=== PATIENT | male | born 1950 | race Caucasian/White ===

== ENCOUNTER 2023-09-24 06:11 | Inpatient (IN) | payer MEDICARE, OTHER, SELFPAY ==
[2023-09-13 09:12] VITALS: BMI 32.6
[2023-09-13 09:59] LABS: Hematocrit 41.4 % (39.0-52.0); Hemoglobin 14.5 g/dL (13.0-18.0); Mean Corpuscular Volume 88.5 fL (80.0-94.0); Mean Platelet Volume 9.7 fL (7.4-10.4); Platelet Count 218 10^3/uL (130-400); Red Blood Cell Count 4.68 10^6/uL (4.70-6.10); Red Cell Dist. Width 12.4 % (11.5-14.5); White Blood Cell Count 4.6 10^3/uL (4.8-10.8)
[2023-09-13 10:19] LABS: Blood Urea Nitrogen 21 mg/dl (9-20); Calcium 9.7 mg/dl (8.4-10.2); Carbon Dioxide 21 mmol/L (22-30); Chloride 106 mmol/L (98-107); Estimated Creatinine Clearance 78 ml/min; Glucose 108 mg/dl (70-99); Potassium 4.8 mmol/L (3.5-5.1); Sodium 139 mmol/L (135-145); eGFR > 60.00
--- NOTE | 2023-09-24 09:15 | HP.FOC2 ---
Focused History & Physical
Chief Complaint
HPI:
Chief Complaint: Recurrent sigmoid diverticulitis
HPI / Indication for Planned Procedure: Patient is a 73-year-old male with a known history of sigmoid diverticulitis. He has had 3 recurrences over the last year with CT imaging confirming recurrent sigmoid diverticulitis. Presents today for
sigmoidectomy for management.
Relevant Past Medical History: Other (Obesity, dyslipidemia, hypertension, GERD, euthyroid goiter, previous history of prostate cancer, recurrent diverticulitis)
Relevant Social History: Negative
Relevant Family History: Negative
Relevant Past Surgical History: Positive for (TNA, sebaceous cyst excision, cataracts, prostatectomy)
Review of Systems
Review of Pertinent Systems: All Systems Negative
Medication
See Medication form for detailed medications: Yes
Medication List (including Herbals & OTC):
simvastatin 40 mg tablet 40 mg PO HS High cholesterol 03/18/20
lisinopril 10 mg tablet 10 mg PO HS Blood pressure 10/09/22
calcium carbonate (Tums) 200 mg PO PRN PRN reflux 09/20/23
famotidine 10 mg tablet 10 mg PO PRN PRN reflux 09/20/23
sodium sul 1.479 gram-potas ch 0.188 gram-magnes sul 0.225 gram tablet (Sutab) 1 tab PO DIRECTED 09/20/23
Medications Reviewed: Yes
Allergies and Reactions
Patient has Allergies: Yes
Noted Allergies and Reactions:
Allergy/AdvReac Type Severity Reaction Status Date / Time
Sulfa (Sulfonamide Allergy forehead Verified 09/20/23 12:08
Antibiotics) got red &
itchy
Pertinent Physical Exam
All Other Systems: Negative
Head/Neck: Normal
Lungs: Normal
Heart: Normal
Abdomen: Normal
Extremities: Normal
Neurological: Normal
Diagnosis / Assessment
73-year-old male with recurrent sigmoid diverticulitis presenting for scheduled sigmoidectomy
Plan / Procedure
Laparoscopic assisted sigmoidectomy
Anesthesia/Sedation to be done by Anesthesia Provider: Yes
[2023-09-24 10:42] VITALS: BP 113/74
[2023-09-24 10:55] VITALS: BMI 32.6
[2023-09-24] MEDS: ENTEREG 12 MG PO (10:59)
[2023-09-24] MEDS: TYLENOL 1000 MG PO (10:59)
[2023-09-24] MEDS: NORMOSOL-R 1000 IV (11:12)
--- NOTE | 2023-09-24 11:37 | W.SUR.PREOP ---
Pre-Operative Surgical Note
-
I have examined this patient prior to the performance of the scheduled procedure.
The patient's condition is unchanged from the time of the current History and
Physical and the patient is able to undergo the scheduled procedure.
--- NOTE | 2023-09-24 15:33 | W.IMMPOSTOP ---
Addendum entered and electronically signed by Simon Rodney MD 09/24/23 16:06:
#[id number]
Original Note:
Surgical Immed Post Op Note
-
Primary Surgeon: Ronel
Assisting Surgeon: Jaswinder Lowry PGY -1
Pablito LOTT
Pre-op Diagnosis: Sigmoid diverticulitis
Post-op Diagnosis: Sigmoid diverticulitis
Procedure Performed: Laparoscopic sigmoidectomy
Anesthesia Type: GETA +0.25% Marcaine
Specimen / Cultures: Sigmoid colon
Estimated Blood Loss: 30 mL
Complications: None immediate
Operative Findings: Very redundant and lengthy sigmoid colon. Chronic diverticular inflammation and adhesions particularly along the left side of the mesentery and pelvic sidewall. Sigmoidectomy completed with end-to-end EEA 28 anastomosis just
anterior to JAVAD staple line. Air leak test negative.
[2023-09-24 15:50] VITALS: BP 113/74
[2023-09-24 16:00] VITALS: BP 112/65
[2023-09-24 16:15] VITALS: BP 120/65
[2023-09-24 16:30] VITALS: BP 114/60
[2023-09-24] MEDS: NSS 1000 IV (16:30)
[2023-09-24 17:02] VITALS: BP 131/79
[2023-09-24] MEDS: OFIRMEV 100 IV (21:25)
[2023-09-25] MEDS: NSS 1000 IV ×3 (00:26→19:56)
[2023-09-25] MEDS: POLYTRIM OPHTHALMIC SOLUTION 1 DROP OPHTH ×3 (01:49→15:11)
[2023-09-25 03:15] VITALS: BP 136/80
[2023-09-25 07:35] VITALS: BP 142/76
[2023-09-25] MEDS: PROTONIX 40 MG PO (08:21)
--- NOTE | 2023-09-25 08:33 | W.PN.GS2 ---
Today's Communication / Plan
-
Clear liquids
Continue lisa
Assessment / Plan
-
73 yo male with history of sigmoid diverticulitis presenting for operative management
POD #1 lap sigmoidectomy
AFVSS
AM labs pending
Await bowel recovery
--Start clear liquid diet
--OOB/Ambulate
--Multimodal analgesics
--Continue lisa today, VT in AM
--Lovenox/SCD's for vte ppx
Subjective Data
-
Date of Service: September 25, 2023
Patient seen and examined at bedside with Dr. Lay. Denies n/v. Some eye irritation post op, better with drops. No passage of flatus/stool as of yet.
Objective Data
-
Intake and Output
09/24/23 09/25/23 09/26/23
06:59 06:59 06:59
Intake Total 1581 / 1581
Output Total 1100 / 1100
Balance 481 / 481
Intake:
Oral fluids 6 / 6
IV fluids (Total) 1575 / 1575
Nss 1,000 ml @ 120 mls/hr IV . 60 / 60
Q8H20M OTONIEL Rx#:[id number]
norm 75 / 75
Output:
Urine, Lisa 1100 / 1100
Vital Signs
Temp Pulse Resp BP Pulse Ox
98.3 F 82 14 142/76 96
09/25/23 07:35 09/25/23 07:35 09/25/23 07:35 09/25/23 07:35 09/25/23 07:35
Calcium 9.7 mg/dl (8.4-10.2) 09/13/23 09:10
Physical Exam
-
NAD
ABD soft, mild distention, mild generalized tenderness, TWISTER HAND
Incisions well approximated with intact glue
[2023-09-25 09:57] LABS: Hematocrit 37.6 % (39.0-52.0); Hemoglobin 13.1 g/dL (13.0-18.0); Mean Corp Hgb Conc. 34.8 g/dL (33.0-37.0); Mean Corpuscular Hgb 31.1 pg (27.0-31.0); Mean Corpuscular Volume 89.3 fL (80.0-94.0); Mean Platelet Volume 9.4 fL (7.4-10.4); Platelet Count 196 10^3/uL (130-400); Red Blood Cell Count 4.21 10^6/uL (4.70-6.10); Red Cell Dist. Width 12.3 % (11.5-14.5)
[2023-09-25 10:42] LABS: Blood Urea Nitrogen 17 mg/dl (9-20); Calcium 8.2 mg/dl (8.4-10.2); Carbon Dioxide 19 mmol/L (22-30); Chloride 109 mmol/L (98-107); Estimated Creatinine Clearance 111 ml/min; Glucose 143 mg/dl (70-99); Potassium 3.9 mmol/L (3.5-5.1); Sodium 134 mmol/L (135-145); eGFR > 60.00
[2023-09-25 11:25] VITALS: BP 126/66
--- NOTE | 2023-09-25 15:24 | CM ---
CM met with pt bedside
Pt resides with his spouse in a 2SH with 3STE
Full flight to second floor
Pt is independent with his ADLs
Denies use of DMEs and hx with VN/SNF
PCP- Paulino Jang
Rx- Nathan Montero
Discharge Disposition- home, no needs anticipated
[2023-09-25 15:25] VITALS: BP 135/78
[2023-09-25] MEDS: LOVENOX 40 MG SC (17:14)
[2023-09-25 19:00] VITALS: BP 136/73
[2023-09-25] MEDS: ZESTRIL 10 MG PO (21:33)
[2023-09-25 23:00] VITALS: BP 120/63
[2023-09-26] MEDS: NSS 1000 IV (05:29)
[2023-09-26 06:14] LABS: Hematocrit 34.3 % (39.0-52.0); Hemoglobin 11.8 g/dL (13.0-18.0); Mean Corp Hgb Conc. 34.4 g/dL (33.0-37.0); Mean Corpuscular Hgb 31.5 pg (27.0-31.0); Mean Corpuscular Volume 91.5 fL (80.0-94.0); Mean Platelet Volume 9.4 fL (7.4-10.4); Platelet Count 174 10^3/uL (130-400); Red Blood Cell Count 3.75 10^6/uL (4.70-6.10); White Blood Cell Count 6.8 10^3/uL (4.8-10.8)
[2023-09-26 06:35] LABS: Blood Urea Nitrogen 13 mg/dl (9-20); Calcium 8.4 mg/dl (8.4-10.2); Carbon Dioxide 26 mmol/L (22-30); Chloride 107 mmol/L (98-107); Estimated Creatinine Clearance 111 ml/min; Glucose 96 mg/dl (70-99); Potassium 4.5 mmol/L (3.5-5.1); Sodium 136 mmol/L (135-145); eGFR > 60.00
[2023-09-26 07:35] VITALS: BP 141/81
[2023-09-26] MEDS: PROTONIX 40 MG PO (07:57)
[2023-09-26] MEDS: POLYTRIM OPHTHALMIC SOLUTION 1 DROP OPHTH (07:57)
--- NOTE | 2023-09-26 08:29 | W.PN.GS2 ---
Today's Communication / Plan
-
Advance diet
Middleton removed
Assessment / Plan
-
73 yo male with history of sigmoid diverticulitis presenting for operative management
POD #2 lap sigmoidectomy
AFVSS
Labs stable. Mild acute anemia likely secondary to hemodilution and expected intraop losses
Passing flatus
Middleton out this am, DTV
--Advance to LRD
--OOB/Ambulate
--Multimodal analgesics
--Voiding trial today
--Lovenox/SCD's for vte ppx
Tentative d/c later today vs tomorrow pending diet tolerance and voiding trial
Subjective Data
-
Date of Service: September 26, 2023
Patient seen and examined at bedside with Dr. Lay. Denies pain. Some incisional soreness with coughing. Tolerating diet without n/v. Passing flatus. Has not yet voided.
Objective Data
-
Intake and Output
09/25/23 09/26/23 09/27/23
06:59 06:59 06:59
Intake Total 1581 / 1581 1320 / 1320
Output Total 1100 / 1100 2650 / 2650
Balance 481 / 481 -1330 / -1330
Intake:
Oral fluids 6 / 6 1320 / 1320
IV fluids (Total) 1575 / 1575
Nss 1,000 ml @ 120 mls/hr IV . 60 / 60
Q8H20M OTONIEL Rx#:[id number]
norm 75 / 75
Output:
Urine, Middleton 1100 / 1100 2650 / 2650
Vital Signs
Temp Pulse Resp BP Pulse Ox
98.0 F 60 16 141/81 98
09/26/23 07:35 09/26/23 07:35 09/26/23 07:35 09/26/23 07:35 09/26/23 07:35
Lab Results
09/26/23 05:56
09/26/23 05:56
Calcium 8.4 mg/dl (8.4-10.2) 09/26/23 05:56
Physical Exam
-
NAD
ABD soft, NT, ND, [employer]
Incisions well approximated with intact glue
--- NOTE | 2023-09-26 11:04 | CM ---
CM reveiwed chart- ADC today/tomorrow pending diet toleration and void trial
Bedside meeting with pt and spouse
No dc needs noted
IMM verbally reviewed- copy provided
Discharge Disposition- home, no needs- spouse transport
--- NOTE | 2023-09-26 13:38 | W.DCSUMMARY ---
Discharge Summary
Discharge Data
Date of Admission: 09/24/23
Date of Discharge: 09/26/23
-
Pending Results: No
Hospital Course
This is a 73 yo male with a history of sigmoid diverticulitis who presented for operative management with laparoscopic sigmoidectomy. He tolerated the procedure well without complication. Diet was able to be advanced and well tolerated after
surgery. He had good bowel recovery. Perioperative lisa was removed on post op day two an dhe was able to void without difficulty. Patient discharged to home with spouse with plan for outpatient follow up in the coming weeks.
Discharge Plan
-
Patient Disposition: Home (Routine Discharge)
Discharge Diagnosis/Procedures: Laparoscopic sigmoidectomy
Condition: Good
Diet: Low Fiber
Activity: No strenuous activity
Additional Activity: No lifting over 20 lbs for the next 2-3 weeks
Driving Restrictions: No driving for 1 week
Bathing Restrictions: OK to Shower
Wound Care: Allow the glue to flake off on its own
Activity Restrictions/Additional Instructions:
Call your surgeon if you have fevers >100.5, nausea with vomiting or worsening abdominal pain
Instructions: Low Fiber Diet
Referrals:
Simon Rodney MD [Active] - in two to four weeks
Paulino Jang MD [Family Provider] -
Prescriptions:
New
acetaminophen [acetaminophen] 325 mg tablet
650 mg PO Q4HPRN PRN (Reason: mild pain) Qty: 1 0RF
ibuprofen 200 mg tablet
400 - 600 mg PO Q6HPRN PRN (Reason: moderate pain) Qty: 1 0RF
Continued
simvastatin 40 MG tablet
40 mg PO HS
lisinopril 10 mg tablet
10 mg PO HS
famotidine 10 mg Tablet
10 mg PO PRN PRN (Reason: reflux)
calcium carbonate [Tums] 200 mg calcium (500 mg) Tablet,Chewable
200 mg PO PRN PRN (Reason: reflux)
Discontinued
Sutab 1.479-0.188- 0.225 gram Tablet
1 tab PO DIRECTED
Discharge Orders:
Discharge Patient (As Directed); Ordered 09/26/23
Ordered By: Georgina Villalobos
Discharge Date and Time
Print Language: ICELANDIC
[2023-09-26 14:22] VITALS: BP 153/80
== END 2023-09-26 14:26 | disposition home or self-care (01) | DRG 331 ==
LOC: 2 SOUTH 06:11
PROVIDERS: ADMITTING PHYSICIAN Surgery; FAMILY PHYSICIAN Internal Medicine
PROC: 0DBN4ZZ Excision of Sigmoid Colon, Percutaneous Endoscopic Approach (ICD-10-PCS; 2023-09-24)
DX: K57.32 Diverticulitis of large intestine without perforation or abscess without bleeding (principal); K64.9 Unspecified hemorrhoids
CPT/HCPCS: 88307; 36415; 80048; 85027; J1335

== ENCOUNTER → 2024-06-19 07:26 | Outpatient (REF) | payer MEDICARE, OTHER, SELFPAY ==
[2024-06-19 08:20] LABS: % Basophils 0.4 % (0-2); % Eosinophils 2.2 % (0-6); % Lymphocytes 22.4 % (20.5-51.1); % Monocytes 11.1 % (1.7-9.3); % Neutrophils 63.9 % (42.2-75.2); Absolute Eosinophils 0.1 10^3/uL (0-0.7); Absolute Monocytes 0.5 10^3/uL (0.1-0.6); Absolute Neutrophils 2.9 10^3/uL (1.4-6.5); Hematocrit 41.9 % (39.0-52.0); Hemoglobin 14.8 g/dL (13.0-18.0); Mean Corp Hgb Conc. 35.3 g/dL (33.0-37.0); Mean Corpuscular Volume 87.8 fL (80.0-94.0); Mean Platelet Volume 9.5 fL (7.4-10.4); Nucleated Red Blood Cells % 0 % (-); Platelet Count 221 10^3/uL (130-400); Red Blood Cell Count 4.77 10^6/uL (4.70-6.10); White Blood Cell Count 4.5 10^3/uL (4.8-10.8)
[2024-06-19 08:33] LABS: ALT (SGPT) 70 U/L (0-50); AST (SGOT) 44 U/L (17-59); Albumin 4.4 g/dl (3.5-5.0); Alkaline Phosphatase 93 U/L (38-126); Blood Urea Nitrogen 13 mg/dl (9-20); Calcium 9.2 mg/dl (8.4-10.2); Carbon Dioxide 27 mmol/L (22-30); Chloride 103 mmol/L (98-107); Glucose 106 mg/dl (70-99); Potassium 3.6 mmol/L (3.5-5.1); Sodium 139 mmol/L (135-145); Total Bilirubin 0.9 mg/dl (0.2-1.3); Total Protein 6.8 g/dl (6.3-8.2); eGFR > 60.00
[2024-06-19 08:59] LABS: TSH 3.87 uIU/ml (0.47-4.68)
== END ==
LOC: REG 07:26
PROVIDERS: ATTENDING PHYSICIAN Internal Medicine
DX: R19.7 Diarrhea, unspecified (principal)
CPT/HCPCS: 36415; 80053; 84443; 85025; 87045; 87046; 87328; 87329; 87427; 89055

== ENCOUNTER → 2024-07-21 11:45 | Outpatient (REF) | payer MEDICARE, OTHER, SELFPAY | LOC: MRI 3T 11:45 | PROVIDERS: ATTENDING PHYSICIAN Internal Medicine | DX: K86.2 Cyst of pancreas (principal) | CPT/HCPCS: 74183; A9575 ==

== ENCOUNTER 2024-09-27 05:26 | Emergency (ER) | payer MEDICARE, OTHER, SELFPAY ==
[2024-09-27 05:28] VITALS: BP 182/102
--- NOTE | 2024-09-27 05:33 | ED.GENMED ---
History of Present Illness
General
Chief Complaint: Skin Surface Trauma
Source: patient
Exam Limitations: none
Time Seen by Provider: 09/27/24 05:32
Nursing documentation reviewed up to this point in time: agreed with
History of Present Illness
History of Present Illness:
74-year-old male with past medical history of hypertension, GERD, diverticulitis, presents emergency department today with concerns of a skin tear to his right hand. Patient reports that yesterday at around 4 PM, he was doing yard work and was
working on repairing his tractor when he took the battery out, dropped it, and cut the web space between his 1st and 2nd finger, and the posterior surface of the hand. He applied a bandage and went to bed but when he woke up today, there was
persistent bleeding and blood on the bed sheets. He denies any other injuries. He denies pain or decreased range of motion of his fingers or his hands. Denies any paresthesias in his upper extremities. His tetanus is not up to date. He does not take
a blood thinner.
Past History
Past History
ED Past Medical History: Cancer, GERD, HTN and Hypercholesterolemia
ED Past Surgical History: Orthopedic, Tonsilectomy and Urological
Social History
Tobacco: Non-smoker
Alcohol: Occasional
Drug: None
Personal:
Living: with family
Employment: Employed
Review of Systems
Review of Systems
All Other Systems: ROS reviewed and negative except as documented in HPI and ROS
Phy Exam
Physical Exam
Physical Exam:
General: Patient is well appearing and in no acute distress; non-toxic
Skin: Warm and dry, 2.5 cm skin tear to the right posterior hand. Brisk capillary refill.
Head: Normocephalic, atraumatic
Eyes: Sclera non-icteric. EOMs intact.
Cardiac: Regular rate
Pulm: Normal respiratory effort
Musculoskeletal: No bony tenderness to palpation of the right hand.
Neuro: CN II-XII intact, no focal neurologic deficits.
Psychiatric: Appropriate mood and affect.
Course
Orders/Labs/Results
Orders:
Orders
09/27/24 05:45
Tetanus/Diphth/Acelpertussis [Adacel] 0.5 ml IM .ONCE ONE
Vital Signs
Initial and Last Documented VS:
Initial Vital Signs
Temp Pulse Resp BP Pulse Ox
97.8 F 70 18 182/102 98
09/27/24 05:28 09/27/24 05:28 09/27/24 05:28 09/27/24 05:28 09/27/24 05:28
Last Documented Vital Signs
Temp Pulse Resp BP Pulse Ox
97.8 F 63 18 136/77 97
09/27/24 05:28 09/27/24 06:05 09/27/24 06:05 09/27/24 06:05 09/27/24 06:05
Procedures
Laceration Closure
Right Hand:
Status of Wound: clean
Size of Wound in cm: 2.5
Description of Wound Edges: ragged
Preparation: cleaned with saline
Revision/Debridement: routine- no revision
Wound exploration: explored to base- no FB
Type of Closure: single layer closure and Dermabond-skin glue
MDM/Problems Addressed
Differential Diagnosis Includes:
ddx include abrasion, laceration,neurovascular injury
MDM/Problems Addressed:
74 y/o male presents to the ER today with a skin tear to the right hand. This injury occurred around 12 hours ago. He woke up and noticed that it was still bleeding. He denies any other injuries. On physical exam, he has a 2.5 cm skin tear. Pressure
was applied. Wound was dried and Dermabond and steri strips were applied for hemostasis. Patient was observed for a period of time with no evidence of rebleeding. His tetanus was updated today. Return precautions discussed. Patient stable for
discharge.
*Pulse Oximetry
Patient hypoxic: no
*Critical Care Note
Total Time (30-74mins, 75-104mins- exclusive of procedures): Not Applicable
Data Reviewed
Review of Other/Old Records Reveals: Records (reviewed discharge summary from 09/26/23, patient seen for diverticulitis s/p laparoscopic sigmoidectomy)
Source: patient and records
Update Note
Update Note:
6:00 am-- No evidence of rebleeding after period of observation.
ED Attending Note
-
Portions of this chart may have been created with voice recognition software.� Occasional wrong word or��sound alike� substitutions may have occurred due to the inherent limitations of voice recognition software.
Discharge Plan
Departure
Patient Disposition: Home (Routine Discharge)
Date of Disposition: 09/27/24
Time of Disposition: 06:14
Patient with high blood pressure during this ER visit?: Yes
Condition: Good
Discharge Problem:
Skin tear of right hand without complication
Instructions: Laceration Repair With Glue (DC), Wound Care (DC), BLOOD PRESSURE
Prescriptions:
No Action
simvastatin 40 MG tablet
40 mg PO HS
lisinopril 10 mg tablet
10 mg PO HS
famotidine 10 mg Tablet
10 mg PO PRN PRN (Reason: reflux)
calcium carbonate [Tums] 200 mg calcium (500 mg) Tablet,Chewable
200 mg PO PRN PRN (Reason: reflux)
acetaminophen [acetaminophen] 325 mg tablet
650 mg PO Q4HPRN PRN (Reason: mild pain) Qty: 1 0RF
ibuprofen 200 mg tablet
400 - 600 mg PO Q6HPRN PRN (Reason: moderate pain) Qty: 1 0RF
Activity Restrictions/Additional Instructions:
Your tetanus was updated today.
PLEASE RETURN THE EMERGENCY DEPARTMENT SHOULD YOU DEVELOP FEVERS OR CHILLS, PURULENT DRAINAGE FROM YOUR WOUND, SURROUNDING REDNESS TO THE WOUND, INCREASING PAIN, INABILITY MOVE YOUR HAND, CHEST PAIN, SHORTNESS OF BREATH, OR ANY OTHER SIGNS OR
SYMPTOMS RECENTLY.
Interventions
Interventions:
*Risk Screen - Suicide Last Done: 09/27/24 05:28
*General Assessment Last Done: 09/27/24 06:04
*Neglect/Abuse Screening Last Done: 09/27/24 05:28
*ED- Fall Risk Assessment Last Done: 09/27/24 06:04
*ED COVID-19 Vaccine History Last Done: 09/27/24 06:04
*Nursing Disposition Last Done: 09/27/24 06:30
ED-Skin Assessment Last Done: 09/27/24 06:04
Discharge Date and Time
Discharge Date/Time: 09/27/24 06:30
Print Language: MONTSERRATIAN
[2024-09-27] MEDS: ADACEL 0.5 ML IM (06:01)
[2024-09-27 06:05] VITALS: BP 136/77
== END 2024-09-27 06:30 | disposition home or self-care (01) ==
LOC: EMR 05:26
PROVIDERS: EMERGENCY PHYSICIAN Student in an Organized Health Care Education/Training Program
DX: S61.411A Laceration without foreign body of right hand, initial encounter (principal); W20.8XXA Other cause of strike by thrown, projected or falling object, initial encounter; E78.00 Pure hypercholesterolemia, unspecified; I10 Essential (primary) hypertension; Z23 Encounter for immunization
CPT/HCPCS: 12001; 90471; 99282; 90715

== ENCOUNTER 2024-11-07 06:36 | Day surgery (SDC) | payer MEDICARE, OTHER, SELFPAY ==
[2024-11-07 07:30] VITALS: BP 145/67
[2024-11-07 07:33] VITALS: BMI 27.9
[2024-11-07 07:34] VITALS: BMI 27.9
[2024-11-07 09:47] VITALS: BP 110/67
[2024-11-07 10:00] VITALS: BP 113/75
[2024-11-07 10:30] VITALS: BP 133/79
== END 2024-11-07 10:45 | disposition home or self-care (01) ==
LOC: GI 06:36
PROVIDERS: ATTENDING PHYSICIAN Internal Medicine Gastroenterology
DX: K86.9 Disease of pancreas, unspecified (principal); K86.89 Other specified diseases of pancreas; R93.3 Abnormal findings on diagnostic imaging of other parts of digestive tract; K22.70 Barrett's esophagus without dysplasia; K21.9 Gastro-esophageal reflux disease without esophagitis
CPT/HCPCS: 43237; 43239; 88305

== ENCOUNTER → 2024-12-28 07:47 | Outpatient (REF) | payer MEDICARE, OTHER, SELFPAY ==
[2024-12-28 08:13] LABS: Hematocrit 36.4 % (39.0-52.0); Hemoglobin 12.8 g/dL (13.0-18.0); Mean Corp Hgb Conc. 35.2 g/dL (33.0-37.0); Mean Corpuscular Volume 88.1 fL (80.0-94.0); Platelet Count 359 10^3/uL (130-400); Red Cell Dist. Width 11.3 % (11.5-14.5)
[2024-12-28 08:19] VITALS: BMI 27.2
[2024-12-28 08:25] LABS: INR 1.00; PT 13.7 Sec (11.4-14.6)
[2024-12-28 08:43] VITALS: BP 136/75; BP_SYST 68
[2024-12-28] MEDS: ANCEF 10 IV (09:54)
[2024-12-28 11:05] VITALS: BP 140/61; BP_SYST 84
[2024-12-28 11:20] VITALS: BP 133/79; BP_SYST 72
== END ==
LOC: RADI 07:47
PROVIDERS: ATTENDING PHYSICIAN Internal Medicine Hematology & Oncology; FAMILY PHYSICIAN Physician Assistant
DX: C25.0 Malignant neoplasm of head of pancreas (principal); D68.8 Other specified coagulation defects
CPT/HCPCS: 36415; 36561; 76705; 76937; 77001; 85027; 85610; 99152; 99153; C1788

== ENCOUNTER → 2025-01-01 08:25 | Outpatient (REF) | payer MEDICARE, OTHER, SELFPAY ==
[2025-01-01 09:27] LABS: Hematocrit 37.2 % (39.0-52.0); Hemoglobin 12.7 g/dL (13.0-18.0); Mean Corp Hgb Conc. 34.1 g/dL (33.0-37.0); Mean Corpuscular Volume 91.4 fL (80.0-94.0); Nucleated Red Blood Cells % 0 % (-); Platelet Count 290 10^3/uL (130-400); Red Cell Dist. Width 11.9 % (11.5-14.5)
[2025-01-01 09:53] LABS: ALT (SGPT) 25 U/L (0-50); AST (SGOT) 23 U/L (17-59); Albumin 4.1 g/dl (3.5-5.0); Alkaline Phosphatase 117 U/L (38-126); Blood Urea Nitrogen 27 mg/dl (9-20); Calcium 9.3 mg/dl (8.4-10.2); Carbon Dioxide 25 mmol/L (22-30); Chloride 109 mmol/L (98-107); Glucose 117 mg/dl (70-99); Potassium 4.9 mmol/L (3.5-5.1); Sodium 139 mmol/L (135-145); Total Protein 6.7 g/dl (6.3-8.2); eGFR > 60.00
== END ==
LOC: REG 08:25
PROVIDERS: ATTENDING PHYSICIAN Internal Medicine Hematology & Oncology; FAMILY PHYSICIAN Internal Medicine
DX: C25.0 Malignant neoplasm of head of pancreas (principal)
CPT/HCPCS: 36415; 80053; 85025

== ENCOUNTER → 2025-01-15 06:39 | Outpatient (REF) | payer MEDICARE, OTHER, SELFPAY ==
[2025-01-15 08:17] LABS: Hematocrit 36.8 % (39.0-52.0); Hemoglobin 12.6 g/dL (13.0-18.0); Mean Corp Hgb Conc. 34.2 g/dL (33.0-37.0); Mean Corpuscular Volume 90.2 fL (80.0-94.0); Platelet Count 146 10^3/uL (130-400); Red Cell Dist. Width 12.5 % (11.5-14.5)
[2025-01-15 08:47] LABS: ALT (SGPT) 30 U/L (0-50); AST (SGOT) 29 U/L (17-59); Albumin 3.9 g/dl (3.5-5.0); Alkaline Phosphatase 185 U/L (38-126); Blood Urea Nitrogen 16 mg/dl (9-20); Calcium 9.0 mg/dl (8.4-10.2); Carbon Dioxide 28 mmol/L (22-30); Chloride 106 mmol/L (98-107); Glucose 97 mg/dl (70-99); Potassium 4.2 mmol/L (3.5-5.1); Sodium 141 mmol/L (135-145); Total Protein 6.4 g/dl (6.3-8.2); eGFR > 60.00
[2025-01-15 09:16] LABS: Absolute Neutrophils -Man Diff 12.2 10^3/uL (1.4-6.5); Normal RBC Morphology Yes; Platelets Checked Yes; Total Cells Counted 100
== END ==
LOC: REG 06:39
PROVIDERS: ATTENDING PHYSICIAN Internal Medicine Hematology & Oncology; FAMILY PHYSICIAN Internal Medicine
DX: C25.0 Malignant neoplasm of head of pancreas (principal)
CPT/HCPCS: 36415; 80053; 85025

== ENCOUNTER → 2025-01-17 11:38 | Outpatient (REF) | payer MEDICARE, OTHER, SELFPAY ==
[2025-01-19 09:52] LABS: CA 19-9 25 U/mL (<=35)
== END ==
LOC: OIDL 11:38
PROVIDERS: ATTENDING PHYSICIAN Internal Medicine Hematology & Oncology
DX: C25.0 Malignant neoplasm of head of pancreas (principal)
CPT/HCPCS: 86301

== ENCOUNTER → 2025-01-27 08:26 | Outpatient (REF) | payer MEDICARE, OTHER, SELFPAY | LOC: MRI 08:26 | PROVIDERS: ATTENDING PHYSICIAN Internal Medicine Hematology & Oncology; FAMILY PHYSICIAN Internal Medicine | DX: C25.0 Malignant neoplasm of head of pancreas (principal) | CPT/HCPCS: 74183; A9575 ==

== ENCOUNTER → 2025-01-30 06:20 | Outpatient (REF) | payer MEDICARE, OTHER, SELFPAY ==
[2025-01-30 07:47] LABS: Hematocrit 35.4 % (39.0-52.0); Hemoglobin 12.0 g/dL (13.0-18.0); Mean Corp Hgb Conc. 33.9 g/dL (33.0-37.0); Mean Corpuscular Volume 88.9 fL (80.0-94.0); Platelet Count 268 10^3/uL (130-400); Red Cell Dist. Width 13.0 % (11.5-14.5)
[2025-01-30 07:58] LABS: ALT (SGPT) 34 U/L (0-50); AST (SGOT) 27 U/L (17-59); Albumin 3.7 g/dl (3.5-5.0); Alkaline Phosphatase 177 U/L (38-126); Blood Urea Nitrogen 15 mg/dl (9-20); Calcium 8.8 mg/dl (8.4-10.2); Carbon Dioxide 26 mmol/L (22-30); Chloride 104 mmol/L (98-107); Glucose 88 mg/dl (70-99); Potassium 3.7 mmol/L (3.5-5.1); Sodium 140 mmol/L (135-145); Total Protein 5.9 g/dl (6.3-8.2); eGFR > 60.00
[2025-01-30 10:21] LABS: Absolute Neutrophils -Man Diff 10.5 10^3/uL (1.4-6.5)
[2025-01-30 10:22] LABS: Anisocytosis 1+; Hypochromasia 1+; Normal RBC Morphology No; Ovalocytes FEW; Platelets Checked Yes; Polychromasia 1+; Total Cells Counted 100
== END ==
LOC: REG 06:20
PROVIDERS: ATTENDING PHYSICIAN Internal Medicine Hematology & Oncology; FAMILY PHYSICIAN Internal Medicine
DX: C25.0 Malignant neoplasm of head of pancreas (principal)
CPT/HCPCS: 36415; 80053; 85025

== ENCOUNTER → 2025-02-13 06:34 | Outpatient (REF) | payer MEDICARE, OTHER, SELFPAY ==
[2025-02-13 08:05] LABS: Hematocrit 32.7 % (39.0-52.0); Hemoglobin 11.0 g/dL (13.0-18.0); Mean Corp Hgb Conc. 33.6 g/dL (33.0-37.0); Mean Corpuscular Volume 89.1 fL (80.0-94.0); Platelet Count 205 10^3/uL (130-400); Red Cell Dist. Width 13.9 % (11.5-14.5)
[2025-02-13 08:34] LABS: ALT (SGPT) 37 U/L (0-50); AST (SGOT) 32 U/L (17-59); Albumin 3.6 g/dl (3.5-5.0); Alkaline Phosphatase 196 U/L (38-126); Blood Urea Nitrogen 16 mg/dl (9-20); Calcium 9.0 mg/dl (8.4-10.2); Carbon Dioxide 26 mmol/L (22-30); Chloride 106 mmol/L (98-107); Glucose 78 mg/dl (70-99); Potassium 3.6 mmol/L (3.5-5.1); Sodium 140 mmol/L (135-145); Total Protein 5.8 g/dl (6.3-8.2); eGFR > 60.00
[2025-02-13 08:42] LABS: Absolute Neutrophils -Man Diff 10.9 10^3/uL (1.4-6.5); Normal RBC Morphology Yes; Platelets Checked Yes; Total Cells Counted 100
[2025-02-13 12:56] LABS: Iron 103 ug/dl (49-181)
[2025-02-13 13:05] LABS: Total Iron Binding Capacity 318 ug/dl (261-462)
[2025-02-13 13:33] LABS: Ferritin 472.0 ng/ml (17.9-464.0)
[2025-02-13 14:06] LABS: Folate > 20.0 ng/ml (2.76-20); Vitamin B12 > 1000 pg/ml (239-931)
== END ==
LOC: REG 06:34
PROVIDERS: ATTENDING PHYSICIAN Internal Medicine Hematology & Oncology; FAMILY PHYSICIAN Internal Medicine
DX: C25.0 Malignant neoplasm of head of pancreas (principal); D51.9 Vitamin B12 deficiency anemia, unspecified
CPT/HCPCS: 36415; 80053; 82607; 82728; 82746; 83540; 83550; 85025

== ENCOUNTER → 2025-02-27 06:55 | Outpatient (REF) | payer MEDICARE, OTHER, SELFPAY ==
[2025-02-27 08:09] LABS: ALT (SGPT) 44 U/L (0-50); AST (SGOT) 36 U/L (17-59); Albumin 3.7 g/dl (3.5-5.0); Alkaline Phosphatase 215 U/L (38-126); Blood Urea Nitrogen 18 mg/dl (9-20); Calcium 9.3 mg/dl (8.4-10.2); Carbon Dioxide 27 mmol/L (22-30); Chloride 106 mmol/L (98-107); Glucose 98 mg/dl (70-99); Potassium 3.8 mmol/L (3.5-5.1); Sodium 141 mmol/L (135-145); Total Protein 5.8 g/dl (6.3-8.2); eGFR > 60.00
[2025-02-27 08:22] LABS: Hematocrit 31.3 % (39.0-52.0); Hemoglobin 10.7 g/dL (13.0-18.0); Mean Corp Hgb Conc. 34.2 g/dL (33.0-37.0); Mean Corpuscular Volume 89.2 fL (80.0-94.0); Platelet Count 171 10^3/uL (130-400); Red Cell Dist. Width 15.4 % (11.5-14.5)
[2025-02-27 11:49] LABS: Absolute Neutrophils -Man Diff 11.3 10^3/uL (1.4-6.5); Normal RBC Morphology Yes; Platelets Checked Yes; Total Cells Counted 100
[2025-02-27 11:50] LABS: Anisocytosis 1+; Hypochromasia 1+; Polychromasia 1+
== END ==
LOC: REG 06:55
PROVIDERS: ATTENDING PHYSICIAN Internal Medicine Hematology & Oncology; FAMILY PHYSICIAN Internal Medicine
DX: C25.0 Malignant neoplasm of head of pancreas (principal)
CPT/HCPCS: 36415; 80053; 85025

== ENCOUNTER → 2025-03-12 06:38 | Outpatient (REF) | payer MEDICARE, OTHER, SELFPAY ==
[2025-03-12 07:54] LABS: Hematocrit 27.2 % (39.0-52.0); Hemoglobin 9.2 g/dL (13.0-18.0); Mean Corp Hgb Conc. 33.8 g/dL (33.0-37.0); Mean Corpuscular Volume 89.5 fL (80.0-94.0); Red Cell Dist. Width 16.0 % (11.5-14.5)
[2025-03-12 07:58] LABS: ALT (SGPT) 31 U/L (0-50); AST (SGOT) 34 U/L (17-59); Albumin 3.6 g/dl (3.5-5.0); Alkaline Phosphatase 178 U/L (38-126); Blood Urea Nitrogen 18 mg/dl (9-20); Calcium 8.7 mg/dl (8.4-10.2); Carbon Dioxide 27 mmol/L (22-30); Chloride 107 mmol/L (98-107); Glucose 94 mg/dl (70-99); Potassium 3.5 mmol/L (3.5-5.1); Sodium 141 mmol/L (135-145); Total Protein 5.7 g/dl (6.3-8.2); eGFR > 60.00
[2025-03-12 08:16] LABS: Nucleated Red Blood Cells % 0.7 % (-); Platelet Count 120 10^3/uL (130-400)
== END ==
LOC: REG 06:38
PROVIDERS: ATTENDING PHYSICIAN Internal Medicine Hematology & Oncology; FAMILY PHYSICIAN Internal Medicine
DX: C25.0 Malignant neoplasm of head of pancreas (principal)
CPT/HCPCS: 36415; 80053; 85025

== ENCOUNTER 2025-03-27 09:34 | Inpatient (IN) | payer MEDICARE, OTHER, SELFPAY ==
[2025-03-26] VITALS (9 sets, daily range): BP systolic 108–164; BP diastolic 51–88; BMI 25.8
--- NOTE | 2025-03-26 12:32 | ED.GENMED ---
History of Present Illness
General
Chief Complaint: Fever
Time Seen by Provider: 03/26/25 12:29
History of Present Illness
History of Present Illness:
74-year-old male with history of pancreatic cancer status post surgery in November 2024 presents to the emergency department for evaluation of fever for the past 2 days. He is currently on a chemotherapy regimen, last treatment was March 14. Denies
any other symptoms at this time, states he feels fatigued but denies nasal congestion, coughing, shortness of breath, chest pain, abdominal pain, vomiting, or diarrhea. No dysuria or hematuria. No ill contacts at home.
Past History
Past History
ED Past Medical History: Cancer, GERD, HTN and Hypercholesterolemia
ED Past Surgical History: Orthopedic, Tonsilectomy and Urological
Social History
Tobacco: Non-smoker
Alcohol: Occasional
Drug: None
Personal:
Living: with family
Employment: Employed
Review of Systems
Review of Systems
Allergies reviewed?: Yes
All Other Systems: ROS reviewed and negative except as documented in HPI and ROS
Phy Exam
Physical Exam
Physical Exam:
GEN: Well appearing, NAD, WDWN
HEENT: Oral mucosa moist, no scleral icterus
Cardiac: Regular rate and rhythm, no murmur
Lung: No respiratory distress, no tachypnea, lungs clear to auscultation bilaterally
Abdomen soft, grossly nontender
MSK: No gross deformity or injuries
Skin: Good color, no pallor or jaundice, no rashes
Neuro: AO x3, moves all extremities freely
Psych: Calm, cooperative
Course
Orders/Labs/Results
Orders:
Orders
03/26/25 12:40
Electrocardiogram (*1) Urgent
Reason for Study: QTc Monitoring
EKG- Treatment ONCE
Potassium Chloride Powder [Klor-Con] 40 meq PO NOW STA
03/26/25 12:48
COVID-19 Antigen Urgent
Source: Nasal Swab
Complete Blood Count/With Diff Urgent
Comprehensive Metabolic Panel Urgent
Direct Bilirubin Urgent
Lipase Urgent
Magnesium Urgent
Comment: ADD ON
Prothrombin Time Urgent
Blood Culture Q30M
MARY KATE Source: Blood/Venous
Specimen Description:
Blood Culture Q30M
MARY KATE Source: Blood/Venous
Specimen Description:
Influenza A+B Rapid Molecular Urgent
MARY KATE Source: Nasal Swab
Specimen Description:
03/26/25 12:49
Lactic Acid Q4H
Comment: CANCEL 2nd LACTIC ACID IF 1st LACTIC ACID IS LESS THAN 2
03/26/25 13:04
Potassium Chloride [KCl] 20 meq 0.9% Sodium Chloride 250 ml [Nss] 250 ml IV NOW
03/26/25 13:31
0.9% Sodium Chloride 1000 ml [Nss] 1,000 ml IV BOLUS
03/26/25 13:42
CT Abd/Pel (IV only)-DH only Urgent
Comment:
Reason For Exam: fever, transaminitis, prior Whipple
03/26/25 Dinner
Regular
At Your Request: Full Participation
03/26/25 15:09
CefTRIAXone [Rocephin] 1,000 mg IV NOW STA
03/26/25 15:23
Ehrlichia/Anaplasma by PCR [S] Urgent
Lyme Progressive Urgent
Urinalysis Reflex To Culture Urgent
Date Specimen was Collected: 03/26/25
Time Specimen was Collected: 15:20
Urine Microscopic Reflex Cult Urgent
Blood Parasites Urgent
MARY KATE Source: Blood/Venous
Specimen Description:
03/26/25 16:35
ONCOLOGY CONSULT Routine
Consulting Provider: Adrianne Davis
Was physician already notified: Yes
Reason for consult: pancreatic CA, fever
03/26/25 16:45
Lactic Acid Q4H
Comment: CANCEL 2nd LACTIC ACID IF 1st LACTIC ACID IS LESS THAN 2
03/26/25 17:07
Admit/Transfer Patient As Directed
Co-Sign Provider:
Level of Care: Observation services
Assign to:: Telemetry
Physician / Group: Elvin
Diagnosis: fever
Reason for Telemetry: Other
Other Reason for Telemetry: Hypokalemia
Date to Stop Telemetry: 03/28/25
Time to Stop Telemetry: 11:00
PRN Pain Medication Management As Directed
May give lesser potent ordered pain med per pt: Yes
preference::
Protocol:: Medication orders for pain may be administered in a
manner that supports deferring to patient preference
when the pt is:
- Requesting an ordered lesser potent pain medication.
Least to most potent pain medications are defined
as: acetaminophen < NSAID < tramadol < opioids
(morphine, oxycodone, hydromorphone).
- Requesting a lesser dose of the same medication IF
ORDERED.
- Requesting a less intrusive route of administration
if both routes are prescribed by the provider (PO <
IV).
03/26/25 17:10
Code Status As Directed
Resuscitation Status: Full Code
03/26/25 17:17
Add On- LAB Stat
Tests Added?: Mg
03/26/25 22:00
Potassium Chloride [KCl] 40 meq PO ONCE@2200 ONE
03/28/25 11:00
DC Protocol for Telemetry ONCE
Abnormal Lab Results
03/26/25 03/26/25 03/26/25
12:48 12:49 15:23
RBC 2.62 L 10^6/uL
(4.70-6.10)
Hgb 8.1 L g/dL
(13.0-18.0)
Hct 23.8 L %
(39.0-52.0)
RDW 17.0 H %
(11.5-14.5)
Plt Count 76 L 10^3/uL
(130-400)
MPV 10.8 H fL
(7.4-10.4)
Abs Immat Gran (auto) 0.1 H 10^3/uL
(0-0.05)
Absolute Lymphs (auto) 0.1 L 10^3/uL
(1.2-3.4)
Immature Gran % 1.7 H %
(0-0.5)
Neutrophils % 88.1 H %
(42.2-75.2)
Lymphocytes % 1.6 L %
(20.5-51.1)
PT 16.0 H Sec
(11.4-14.6)
Sodium 134 L mmol/L
(135-145)
Potassium 2.4 L* mmol/L
(3.5-5.1)
Glucose 175 H mg/dl
(70-99)
Lactic Acid 3.6 H mmol/L
(0.7-2.0)
Calcium 8.1 L mg/dl
(8.4-10.2)
Magnesium 1.2 L mg/dl
(1.6-2.3)
AST 69 H U/L
(17-59)
ALT 120 H U/L
(0-50)
Alkaline Phosphatase 329 H U/L
(38-126)
Total Protein 5.5 L g/dl
(6.3-8.2)
Albumin 3.3 L g/dl
(3.5-5.0)
Lipase < 10 L U/L
(23-300)
Ur Occult Blood Reflex 1+ A
(Negative)
Urine Bacteria (Reflex) Few A
(Negative)
Urine Albumin (Reflex) 2+ A
(Neg - Trace)
03/26/25 12:48
03/26/25 12:48
Vital Signs
Initial and Last Documented VS:
Initial Vital Signs
Temp Pulse Resp BP Pulse Ox
99.4 F 111 20 139/62 98
03/26/25 12:13 03/26/25 12:13 03/26/25 12:13 03/26/25 12:13 03/26/25 12:13
Last Documented Vital Signs
Temp Pulse Resp BP Pulse Ox
99.4 F 70 17 127/61 93
03/26/25 12:13 03/26/25 17:45 03/26/25 17:45 03/26/25 17:00 03/26/25 17:45
MDM/Problems Addressed
MDM/Problems Addressed:
At this time unless the patient's fever remains unclear. He does have gradual progression of anemia and thrombocytopenia which is most likely driven by chemotherapy however will consider tickborne illnesses as well given associated transaminitis.
Patient is clinically well at this time, does have severe hypokalemia and lactic acidosis, given IV fluids an IV potassium in the ED. given that he is on chemotherapy and thus immunocompromise will cover with IV antibiotics although no clear source
of bacterial infection is found at this time
*Pulse Oximetry
SaO2: 98
Oxygen Mode of Delivery: Room air
Patient hypoxic: no
*Critical Care Note
Total Time (30-74mins, 75-104mins- exclusive of procedures): Not Applicable
ED Attending Note
-
Portions of this chart may have been created with voice recognition software.� Occasional wrong word or��sound alike� substitutions may have occurred due to the inherent limitations of voice recognition software.
Discharge Plan
Departure
Patient Disposition: Admit
Date of Disposition: 03/26/25
Time of Disposition: 16:20
Admit to: Med/Surg
Presentation/result/management discussed w/ accepting MD/DO: Hospitalist
Discharge Problem:
Fever of unknown origin (FUO)
Interventions
Interventions:
*Risk Screen - Suicide Last Done: 03/26/25 12:34
*General Assessment Last Done: 03/26/25 12:34
*Neglect/Abuse Screening Last Done: 03/26/25 12:34
*ED- Fall Risk Assessment Last Done: 03/26/25 12:34
*ED COVID-19 Vaccine History Last Done: 03/26/25 12:34
*ED Influenza Vaccine History Last Done: 03/26/25 12:34
ED- Neurological Assessment Last Done: 03/26/25 12:46
ED-Skin Assessment Last Done: 03/26/25 12:46
[2025-03-26 13:15] LABS: Hematocrit 23.8 % (39.0-52.0); Hemoglobin 8.1 g/dL (13.0-18.0); Mean Corp Hgb Conc. 34.0 g/dL (33.0-37.0); Mean Corpuscular Volume 90.8 fL (80.0-94.0); Platelet Count 76 10^3/uL (130-400); Red Cell Dist. Width 17.0 % (11.5-14.5)
[2025-03-26 13:17] LABS: INR 1.25; PT 16.0 Sec (11.4-14.6)
[2025-03-26] MEDS: KLOR-CON 40 MEQ PO (13:25)
[2025-03-26] MEDS: KCL 260 MEQ IV (13:25)
[2025-03-26 13:28] LABS: COVID-19 Antigen Negative (Negative)
[2025-03-26 13:40] LABS: ALT (SGPT) 120 U/L (0-50); AST (SGOT) 69 U/L (17-59); Albumin 3.3 g/dl (3.5-5.0); Alkaline Phosphatase 329 U/L (38-126); Blood Urea Nitrogen 17 mg/dl (9-20); Calcium 8.1 mg/dl (8.4-10.2); Carbon Dioxide 23 mmol/L (22-30); Chloride 101 mmol/L (98-107); Estimated Creatinine Clearance 74 ml/min; Glucose 175 mg/dl (70-99); Potassium 2.4 mmol/L (3.5-5.1); Sodium 134 mmol/L (135-145); Total Protein 5.5 g/dl (6.3-8.2); eGFR > 60.00
[2025-03-26] MEDS: NSS 1000 IV ×2 (13:56→20:27)
[2025-03-26 13:57] LABS: Lipase < 10 U/L (23-300)
[2025-03-26 14:08] LABS: Nucleated Red Blood Cells % 0 % (-)
[2025-03-26] MEDS: ROCEPHIN 1000 MG IV (15:34)
[2025-03-26 15:41] LABS: Urine Character Clear (Clear)
[2025-03-26 15:54] LABS: Urine Red Blood Cell 0-2 /HPF (0-2); Urine Squamous Cell 0-2 /LPF (Few)
--- NOTE | 2025-03-26 16:22 | HPS.HSE ---
Addendum entered and electronically signed by Oliver Oconnor MD 03/26/25 17:24:
Hypokalemia: 80meq K in ER, will give another 40meq at 2200, check Mg, tele.
Original Note:
Family Physician
-
Family Physician: Paulino Jang
Chief Complaint
-
fever
History of Present Illness
74 y/o M with PMHx:
Pancreatic CA s/p Whipple November 2024
Essential HTN
prostate CA
HLD
h/o Vigil's esophagus
who p/w CC fever. Patient reports she has had fever, diaphoresis, and chills for the last 2 days. He denies any other acute complaints. Specifically denies chest pain, shortness of breath, nausea, vomiting, diarrhea, abdominal pain, neck
stiffness, headache.
Medical History
Past Medical History
Past Medical History: Reports Other (as per HPI)
Past Surgical History: Reports Other (as per HPI, otherwise N/A)
Social History
Tobacco: Non-smoker
Alcohol: None
Drug: None
Family History
Family History: Not pertinent
Allergies / Home Medications
Allergies reflects when Allergies were last updated in [facility].
Home Medications with original date entered in [facility]
Allergy/Medication List:
Allergies
Allergy/AdvReac Type Severity Reaction Status Date / Time
Sulfa (Sulfonamide Allergy forehead Verified 03/26/25 12:13
Antibiotics) got red &
itchy
Home Medications
simvastatin 40 mg tablet 40 mg PO HS High cholesterol 03/18/20
lisinopril 10 mg tablet 10 mg PO DAILY Blood pressure 10/09/22
acetaminophen 325 mg tablet 650 mg (2 x 325 mg) PO Q4HPRN PRN mild pain #1 tab 09/26/23
esomeprazole magnesium 40 mg capsule,delayed release (Nexium) 40 mg PO BID 03/26/25
netysb-oxtzbqed-rjsnqfg (pork)36,000-114,000-180k unit capsule,del rel (Creon) 3 cap PO AC 03/26/25
therapeutic multivitamin 1 tab PO Q48H 03/26/25
Review of Systems
-
History Source: Patient
A 12 point ROS was completed and negative except as noted: Yes
Physical Exam
Vital Signs
Vital Signs
Temp Pulse Resp BP Pulse Ox
99.4 F 85 21 110/56 97
03/26/25 12:13 03/26/25 14:45 03/26/25 14:45 03/26/25 14:00 03/26/25 14:45
Physical Exam
General: Other (.)
Laboratory Results
-
03/26/25 12:48
03/26/25 12:48
Laboratory Results
PT 16.0 Sec (11.4-14.6) H 03/26/25 12:48
INR 1.25 03/26/25 12:48
Lactic Acid 3.6 mmol/L (0.7-2.0) H 03/26/25 12:49
Total Bilirubin 0.8 mg/dl (0.2-1.3) 03/26/25 12:48
AST 69 U/L (17-59) H 03/26/25 12:48
ALT 120 U/L (0-50) H 03/26/25 12:48
Alkaline Phosphatase 329 U/L (38-126) H 03/26/25 12:48
Lipase < 10 U/L (23-300) L 03/26/25 12:48
Impression/Plan
-
Gen: NAD, AAOx3.
Eyes: EOMI, PERRLA, no scleral icterus.
Neck: supple.
CV: RRR, +S1/S2, no m/r/g.
Resp: CTAB, no rales, wheezes, or rhonchi.
Abd: +BS, soft, NT, ND
Skin: No rashes.
Neuro: CN 2-12 intact, non-focal.
Psych: Normal mood and affect.
CT A/P: Postoperative changes of Whipple procedure without evidence of complication. The remnant pancreas is atrophic which is similar in appearance to prior. There is mild hepatic biliary duct dilation which likely sequelae of prior operation.
Infrarenal abdominal aortic ectasia measuring 2.8 cm. 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 There are scattered hepatic hypodensities which are too small to accurately characterize although similar in appearance
to prior.
Fever:
-h/o pancreatic CA s/p Whipple November 2024 currently on chemo (c/s ONC), last tx 03/14/25 (on FOLFIRINOX), WBC growth factor given 03/16
-afebrile in the ER, not neutropenic
-Flu/COVID NEG
-CT A/P and U/A without source/evidence of infection
-given 1L NS, Rocephin in the ER
-with lactic acidosis continue IVFs, trend lactic acid
-cont empiric Rocephin
-follow fever curve
-follow BCxs
Other problems:
Essential HTN: hold ACEi based on current BP
h/o prostate CA
HLD: hold statin with transaminitis
h/o Vigil's esophagus
FULL/Lovenox (Hb and plts reviewed, will monitor closely)
[2025-03-26 17:49] LABS: Magnesium 1.2 mg/dl (1.6-2.3)
--- NOTE | 2025-03-26 18:23 | EDCM ---
Reviewed chart and met with pt and in ED room 7
TORRES signed at 18:15
Lives in a 2 story home with : 5 BARNEY and 1 step to bathroom
indep with ADLs
last chemo tx 03/[address] [facility] [address] Adrianne Davis
next chemo on 03/[address] Paulino Jang
Pharmacy [facility] in [place]
Has RX plan
hx of VN but pt does not remember the name
no hx of SNF
CM will continue to follow up for dcp needs
[2025-03-26] MEDS: PROTONIX 40 MG PO (20:49)
[2025-03-26] MEDS: LOVENOX 40 MG SC (20:50)
[2025-03-26] MEDS: TYLENOL 650 MG PO (20:50)
[2025-03-26] MEDS: KCL 40 MEQ PO (21:24)
[2025-03-26] MEDS: NON-FORMULARY ITEM PO (22:38)
[2025-03-26] MEDS: TYLENOL 325 MG PO (23:21)
[2025-03-27] VITALS (12 sets, daily range): BP systolic 124–160; BP diastolic 65–86
--- NOTE | 2025-03-27 02:19 | PTCARENOTE ---
Pt. arrived to unit from ED via stretcher. Pt. able to safely ambulate into room 335 on . Pt. AAOx3 and able to make needs known. Tele placed per orders. Oriented to unit. Call mejias within reach. Plan of care ongoing.
[2025-03-27] MEDS: TYLENOL 650 MG PO ×2 (04:05→19:59)
[2025-03-27] MEDS: NSS 1000 IV ×2 (04:05→19:59)
[2025-03-27 07:01] LABS: Hematocrit 22.2 % (39.0-52.0); Hemoglobin 7.0 g/dL (13.0-18.0); Mean Corp Hgb Conc. 31.5 g/dL (33.0-37.0); Mean Corpuscular Volume 94.9 fL (80.0-94.0); Platelet Count 68 10^3/uL (130-400); Red Cell Dist. Width 17.3 % (11.5-14.5)
[2025-03-27 07:13] LABS: ALT (SGPT) 103 U/L (0-50); AST (SGOT) 50 U/L (17-59); Albumin 2.6 g/dl (3.5-5.0); Alkaline Phosphatase 262 U/L (38-126); Blood Urea Nitrogen 11 mg/dl (9-20); Calcium 7.7 mg/dl (8.4-10.2); Carbon Dioxide 26 mmol/L (22-30); Chloride 107 mmol/L (98-107); Estimated Creatinine Clearance 84 ml/min; Glucose 90 mg/dl (70-99); Potassium 2.8 mmol/L (3.5-5.1); Sodium 136 mmol/L (135-145); Total Protein 4.7 g/dl (6.3-8.2); eGFR > 60.00
[2025-03-27] MEDS: NON-FORMULARY ITEM 3 CAP PO ×3 (07:38→17:42)
[2025-03-27] MEDS: PROTONIX 40 MG PO ×2 (07:46→19:59)
--- NOTE | 2025-03-27 09:05 | W.PN.HOSP.TC ---
Today's Communication/Plan
-
see plan
Assessment / Plan
Assessment / Plan
Gen: NAD, AAOx3.
Eyes: EOMI, PERRLA, no scleral icterus.
Neck: supple.
CV: Remains RRR, +S1/S2, no m/r/g.
Resp: Remains CTAB, no rales, wheezes, or rhonchi.
Abd: Remains +BS, soft, NT, ND
Skin: No rashes.
Neuro: CN 2-12 intact, non-focal.
Psych: Normal mood and affect.
03/26/25 12:48 Blood/Venous Blood Culture - Preliminary
Positive culture in progress
03/26/25 12:48 Blood/Venous Gram Stain - Preliminary
03/26/25 15:23 Blood/Venous Blood Parasites Smear - Final
03/26/25 12:48 Nasal Swab Influenza Types A & B (ANITHA) - Final
Negative for Influenza A & B, NAAT
Negative results must be combined with clinical observations
and patient history.
Nucleic Acid Amplification test (NAAT)performed on the
[employer] ID NOW platform.
CT A/P: Postoperative changes of Whipple procedure without evidence of complication. The remnant pancreas is atrophic which is similar in appearance to prior. There is mild hepatic biliary duct dilation which likely sequelae of prior operation.
Infrarenal abdominal aortic ectasia measuring 2.8 cm. 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 There are scattered hepatic hypodensities which are too small to accurately characterize although similar in appearance
to prior.
Bacteremia:
-presented with fever/chills/diaphoresis x 2 days
-h/o pancreatic CA s/p Whipple November 2024 currently on chemo (c/s ONC), last tx 03/14/25 (on FOLFIRINOX), WBC growth factor given 03/16
-afebrile in the ER but febrile O/N, not neutropenic
-Flu/COVID NEG
-CT A/P and U/A without source/evidence of infection
-given 1L NS, Rocephin in the ER
-lactic acidosis has resolved with IVFs
-BCx with GNR
-cont empiric Rocephin
-c/s ID
-follow fever curve
-follow BCxs to completion
Anemia:
-likely due to chemo
-transfuse 2U pRBCs
Other problems:
Essential HTN: holding ACEi, may restart tomorrow
h/o prostate CA
HLD: holding statin with transaminitis
h/o Vigil's esophagus
FULL code
-stop Lovenox for DVT proph with Hb 7 requiring transfusion
Anticipated Discharge: > 48 hours
Subjective/Interval History
-
Date of Service: March 27, 2025
Patient states he overall feels better than when he came into the hospital. No new complaints.
Objective Data
-
Labs:
Laboratory Results
03/27/25
06:41
WBC 6.1
Hgb 7.0 L
Hct 22.2 L
Plt Count 68 L
Sodium 136
Potassium 2.8 L
Chloride 107
Carbon Dioxide 26
BUN 11
Creatinine 0.8
Glucose 90
Calcium 7.7 L
Total Bilirubin 0.5
AST 50
ALT 103 H
Alkaline Phosphatase 262 H
Vital Signs:
Vital Signs
Temp Pulse Resp BP Pulse Ox
98.3 F 71 18 147/76 96
03/27/25 07:15 03/27/25 07:15 03/27/25 07:15 03/27/25 07:15 03/27/25 07:15
I&O
03/26/25 03/27/25 03/28/25
06:59 06:59 06:59
Intake Total 1375 / 1375
Balance 1375 / 1375
[2025-03-27] MEDS: KCL 40 MEQ PO ×2 (09:58→13:10)
--- NOTE | 2025-03-27 10:12 | CON.ID ---
Consultation
-
Date/Time Consultation Requested: 03/27/25 9:09
Date/Time Consultation Performed: 03/27/25 10:12
Requesting Provider: Dr Oconnor
Performing Provider: Dr Mullen
Reason for Consultation: bacteremia
Chief Complaint / Past History
Chief Complaint
fever
History of Present Illness
Mr Velez is a 74 year old male with history of pancreatic cancer s/p whipple november 2024 who presented here for fever, sweats and chills for two days. Last week additionally with diarrhea which has been intermittent and he associates with his
chemotherapy. He denies chest pain, headaches, sinus tenderness, shortness of breath, cough, nausea, vomiting, abdominal pain, neck stiffness, headache. His last colonoscopy was 08/2021
Since arrival here he has been febrile to 102.2, bp stable, wbc 6.5 and now 6.1, hgb 7.0, plt 68, na 136, K 2.8, cr 0.8, t bili 0.5, ast 50, alt 103, alk phos 262, lyme anaplasma/ehrlichia has been sent, CT a/p previous whipple seen without
complication, ua no pyuria, blood culture 1 set with k aerogenes, influena pcr negative, ua negative, patient has been on ceftriaxone, ID is consulted for assistance with management.
Past History
Additional Past Medical History:
Pancreatic CA s/p Whipple November 2024
Essential HTN
prostate CA
HLD
h/o Vigil's esophagus
Additional Past Surgical History:
whipple november 2024
Allergy History:
Sulfa (Sulfonamide Antibiotics) Allergy (Verified 03/26/25 12:13)
forehead got red & itchy
Medications Reviewed: Yes
Social History
Tobacco: Non-Smoker
Alcohol: None
Drug: None
Family History
Family History: Not Pertinent
Review of Systems
Review of Systems
A 12 point ROS was completed and negative except as noted
Vital Signs
Temp Pulse Resp BP Pulse Ox
98.3 F 71 18 147/76 96
03/27/25 07:15 03/27/25 07:15 03/27/25 07:15 03/27/25 07:15 03/27/25 07:15
Physical Exam
Physical Exam
Constitutional: No Acute Distress
Cardiovascular: Regular Rate and S1/S2; Negative Murmur or Rub
Pulmonary: Clear and Symmetric; Negative Wheezes, Rales or Rhonchi
Gastrointestinal: Soft, Non Tender, Non Distended and Normal Bowel Sounds
Skin: Warm and Dry; Negative Rash or Jaundice
Lab / Diagnostic Study Results
03/27/25 06:41
03/27/25 06:41
Abs Immat Gran (auto) 0.1 10^3/uL (0-0.05) H 03/26/25 12:48
Absolute Neuts (auto) 5.7 10^3/uL (1.4-6.5) 03/26/25 12:48
Absolute Lymphs (auto) 0.1 10^3/uL (1.2-3.4) L 03/26/25 12:48
Absolute Monos (auto) 0.5 10^3/uL (0.1-0.6) 03/26/25 12:48
Absolute Basos (auto) 0.0 10^3/uL (0-0.2) 03/26/25 12:48
Immature Gran % 1.7 % (0-0.5) H 03/26/25 12:48
Neutrophils % 88.1 % (42.2-75.2) H 03/26/25 12:48
Lymphocytes % 1.6 % (20.5-51.1) L 03/26/25 12:48
Monocytes % 8.4 % (1.7-9.3) 03/26/25 12:48
Eosinophils % 0.0 % (0-6) 03/26/25 12:48
Basophils % 0.2 % (0-2) 03/26/25 12:48
PT 16.0 Sec (11.4-14.6) H 03/26/25 12:48
INR 1.25 03/26/25 12:48
Lactic Acid 1.0 mmol/L (0.7-2.0) 03/27/25 06:41
Ur Squamous Epith Cells 0-2 /LPF (Few) 03/26/25 15:23
Microbiology Results
Micro:
03/26/25 12:48 Blood Culture - Preliminary
Blood/Venous Klebsiella aerogenes
Gram Stain - Preliminary
03/26/25 15:23 Blood Parasites Smear - Final
Blood/Venous
03/26/25 12:48 Influenza Types A & B (ANITHA) - Final
Nasal Swab Negative for Influenza A & B, NAAT
Negative results must be combined with clinical observations
and patient history.
Nucleic Acid Amplification test (NAAT)performed on the
[employer] ID NOW platform.
03/26/25 12:48 Blood Culture - Pending
Blood/Venous
Assessment / Plan
Klebsiella Bacteremia
Fever
- CT a/p without a definitive source
- CXR two view - no acute disease
- source may have been enteritis
- repeat blood cultures x2
- continue ceftriaxone
--- NOTE | 2025-03-27 11:35 | VATNOTE ---
Patient admitted with an unaccessed port. Blood cultures from 03/26 positive. Patient and Primary RN advised to use peripheral venous access given he has sufficient site options. Port to stay unused unless last resort to decrease risk for possible
port infections. Plan discussed with infection prevention team.
--- NOTE | 2025-03-27 11:53 | CON.ONC ---
Consultation
-
Date Consultation Requested: 03/26/25
Date Consultation Performed: 03/27/25
Requesting Provider: Dr Oliver Oconnor
Performing Provider: Dr Adrianne Davis
Reason for Consultation: pancreas cancer on chemo, fever
Impression
Impression
klebsiella bacteremia, with recent diarrheal episodes
pancreas cancer, s/p Whipple, on adjuvant FOLFIRINOX
progressive anemia and thrombocytopenia, from chemotherapy
Plan
Plan
antibiotics per ID, not neutropenic
for 1u pRBCs today - monitor CBC w/ diff daily
Will follow and reschedule chemo for next 1-2 weeks
Patient History
History of Present Illness
Link is a 74yo patient of [facility], with resected pancreas cancer, currently getting adjuvant chemo w/ FOLFIRINOX, last on 03/14 w/ GCSF. Over the weekend, he noted fevers and malaise, tylenol helped temporarily. He called the office yesterday with an
update, and was directed to the ER. Infecitous w/u thus far is noted for blood culture positive for klebsiella. He reports significant diarrhea last week after eating a hoagie with spicy [place]ic[place]. No issues with his port.
Past-Medical/Surgical History
Medical History
Pancreatic CA s/p Whipple November 2024
Essential HTN
prostate CA
HLD
h/o Vigil's esophagus
Social History
Tobacco: Non-smoker
Alcohol: None
Drug: None
Family History
Family History: Not pertinent
Patient Medication
�Medication �Instructions �Recorded �Confirmed �Last Taken �Type
simvastatin 40 mg tablet 40 mg PO HS High cholesterol 03/18/20 03/26/25 03/26/25 History
lisinopril 10 mg tablet 10 mg PO DAILY Blood pressure 10/09/22 03/26/25 03/26/25 History
acetaminophen 325 mg tablet 650 mg (2 x 325 mg) PO Q4HPRN PRN 09/26/23 03/26/25 03/26/25 Rx
mild pain #1 tab
esomeprazole magnesium 40 mg 40 mg PO BID gerd 03/26/25 03/26/25 Unknown History
capsule,delayed release (Nexium)
veduio-tgmygppj-oidvlzo 3 cap PO AC ENZYME 03/26/25 03/26/25 Unknown History
(pork)36,000-114,000-180k unit
capsule,del rel (Creon)
therapeutic multivitamin 1 tab PO Q48H Supplement 03/26/25 03/26/25 Unknown History
Active Medications
Generic Name Dose Route Start Last Admin
Trade Name Freq PRN Reason Stop Dose Admin
Acetaminophen 650 mg 03/26/25 19:48 03/27/25 04:05
Acetaminophen 325 Mg Tablet PO 04/23/25 19:47 650 mg
Q4HPRN PRN Administration
mild pain/CHRISTIANSEN/temp> 100.4F
Bisacodyl 10 mg 03/26/25 19:48
Bisacodyl 10 Mg Rectal Suppository RECTAL 04/23/25 19:47
[id number] PRN
constipation
Ceftriaxone Sodium 1,000 mg 03/27/25 13:00
Ceftriaxone 1000 Mg / 10 Ml Vial IV
Q24H OTONIEL
Sodium Chloride 1,000 mls @ 125 mls/hr 03/26/25 19:48 03/27/25 04:05
Nss IV 1,000 mls
.Q8H OTONIEL Administration
Creon Dr(Lipase 36, 0 cap 03/26/25 23:00 03/27/25 07:38
000 Units,Protease PO 04/23/25 22:59 3 cap
114,000 Units, AC OTONIEL Administration
Amylase 180,000
Units) Take 3 Caps
Ac
Pantoprazole Sodium 40 mg 03/26/25 20:00 03/27/25 07:46
Pantoprazole 40 Mg Delayed Release Tablet PO 04/23/25 19:59 40 mg
BID OTONIEL Administration
Polyethylene Glycol 17 grams 03/26/25 19:48
Polyethylene Glycol Powder 17 Grams Packet PO 04/23/25 19:47
DAILYPRN PRN
constipation
Potassium Chloride 40 meq 03/27/25 10:00 03/27/25 09:58
Potassium Chloride 20 Meq Extended Release Tablet PO 03/27/25 14:01 40 meq
Q4H OTONIEL Administration
Senna/Docusate Sodium 1 tablet 03/26/25 19:48
Docusate W/Senna (Silvia-Colace) Tablet PO 04/23/25 19:47
BIDPRN PRN
constipation
Review of Systems
-
All Other Systems: Not reviewed unless documented
Physical Exam
-
General: Well Developed, Well Nourished, No Apparent Distress and Comfortable
HEENT: Moist Mucous Membranes; Negative Jaundice
Extremities: No C/C/E
Neurology: Non Focal
Skin: Warm and Dry
Psych: Calm and Intact Judgement/Insight
Labs
Lab Results
WBC 6.1 10^3/uL (4.8-10.8) 03/27/25 06:41
RBC 2.34 10^6/uL (4.70-6.10) L 03/27/25 06:41
Hgb 7.0 g/dL (13.0-18.0) L 03/27/25 06:41
Hct 22.2 % (39.0-52.0) L 03/27/25 06:41
MCV 94.9 fL (80.0-94.0) H 03/27/25 06:41
MCH 29.9 pg (27.0-31.0) 03/27/25 06:41
MCHC 31.5 g/dL (33.0-37.0) L 03/27/25 06:41
RDW 17.3 % (11.5-14.5) H 03/27/25 06:41
Plt Count 68 10^3/uL (130-400) L 03/27/25 06:41
MPV 10.0 fL (7.4-10.4) 03/27/25 06:41
Abs Immat Gran (auto) 0.1 10^3/uL (0-0.05) H 03/26/25 12:48
Absolute Neuts (auto) 5.7 10^3/uL (1.4-6.5) 03/26/25 12:48
Absolute Lymphs (auto) 0.1 10^3/uL (1.2-3.4) L 03/26/25 12:48
Absolute Monos (auto) 0.5 10^3/uL (0.1-0.6) 03/26/25 12:48
Absolute Eos (auto) 0.0 10^3/uL (0-0.7) 03/26/25 12:48
Absolute Basos (auto) 0.0 10^3/uL (0-0.2) 03/26/25 12:48
Immature Gran % 1.7 % (0-0.5) H 03/26/25 12:48
Neutrophils % 88.1 % (42.2-75.2) H 03/26/25 12:48
Lymphocytes % 1.6 % (20.5-51.1) L 03/26/25 12:48
Monocytes % 8.4 % (1.7-9.3) 03/26/25 12:48
Eosinophils % 0.0 % (0-6) 03/26/25 12:48
Basophils % 0.2 % (0-2) 03/26/25 12:48
Creatinine 0.8 mg/dL (0.7-1.3) 03/27/25 06:41
Vital Signs
Vital Signs
Temp Pulse Resp BP Pulse Ox
98.4 F 79 17 135/78 98
03/27/25 11:50 03/27/25 11:50 03/27/25 11:50 03/27/25 11:50 03/27/25 11:50
--- NOTE | 2025-03-27 12:31 | CM ---
Pt changed to inpatient . IMM copy given reviewed and signed on chart.
visiting .
Offered VN he declined need.
PLAN Home no anticipated needs
[2025-03-27] MEDS: ROCEPHIN 1000 MG IV (13:09)
[2025-03-27] MEDS: NSS IV (19:58)
[2025-03-28] VITALS (7 sets, daily range): BP systolic 147–162; BP diastolic 86–94
[2025-03-28 05:42] LABS: Hematocrit 27.8 % (39.0-52.0); Hemoglobin 9.3 g/dL (13.0-18.0); Mean Corp Hgb Conc. 33.5 g/dL (33.0-37.0); Mean Corpuscular Volume 90.0 fL (80.0-94.0); Platelet Count 77 10^3/uL (130-400); Red Cell Dist. Width 16.9 % (11.5-14.5)
[2025-03-28 06:25] LABS: ALT (SGPT) 100 U/L (0-50); AST (SGOT) 53 U/L (17-59); Albumin 2.9 g/dl (3.5-5.0); Alkaline Phosphatase 324 U/L (38-126); Blood Urea Nitrogen 9 mg/dl (9-20); Calcium 8.2 mg/dl (8.4-10.2); Carbon Dioxide 25 mmol/L (22-30); Chloride 107 mmol/L (98-107); Estimated Creatinine Clearance 84 ml/min; Glucose 85 mg/dl (70-99); Potassium 3.1 mmol/L (3.5-5.1); Sodium 138 mmol/L (135-145); Total Protein 5.1 g/dl (6.3-8.2); eGFR > 60.00
[2025-03-28] MEDS: PROTONIX 40 MG PO ×2 (07:52→19:39)
[2025-03-28] MEDS: NON-FORMULARY ITEM 3 CAP PO ×3 (07:52→17:48)
--- NOTE | 2025-03-28 08:37 | W.PN.HOSP.TC ---
Today's Communication/Plan
-
see plan
Assessment / Plan
Assessment / Plan
Gen: NAD, AAOx3.
Eyes: EOMI, PERRLA, no scleral icterus.
Neck: supple.
CV: continues to remain RRR, +S1/S2, no m/r/g.
Resp: continues to remain CTAB, no rales, wheezes, or rhonchi.
Abd: continues to remain +BS, soft, NT, ND
Skin: No rashes.
Neuro: CN 2-12 intact, non-focal.
Psych: Normal mood and affect.
03/26/25 12:48 Blood/Venous Blood Culture - Preliminary
No Growth in 24 hours- Final report to follow
03/26/25 12:48 Blood/Venous Blood Culture - Preliminary
Klebsiella aerogenes
03/26/25 12:48 Blood/Venous Gram Stain - Preliminary
03/26/25 15:23 Blood/Venous Blood Parasites Smear - Final
03/26/25 12:48 Nasal Swab Influenza Types A & B (ANITHA) - Final
Negative for Influenza A & B, NAAT
Negative results must be combined with clinical observations
and patient history.
Nucleic Acid Amplification test (NAAT)performed on the
[employer] ID NOW platform.
CT A/P: Postoperative changes of Whipple procedure without evidence of complication. The remnant pancreas is atrophic which is similar in appearance to prior. There is mild hepatic biliary duct dilation which likely sequelae of prior operation.
Infrarenal abdominal aortic ectasia measuring 2.8 cm. 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 There are scattered hepatic hypodensities which are too small to accurately characterize although similar in appearance
to prior.
CXR: No acute radiographic abnormality in the chest
Bacteremia:
-presented with fever/chills/diaphoresis x 2 days
-h/o pancreatic CA s/p Whipple November 2024 currently on chemo (c/s ONC), last tx 03/14/25 (on FOLFIRINOX), WBC growth factor given 03/16
-afebrile in the ER but febrile O/N, not neutropenic
-Flu/COVID NEG
-CT A/P and U/A without source/evidence of infection
-given 1L NS, Rocephin in the ER
-lactic acidosis has resolved with IVFs
-1 of 2 BCxs with Klebsiella, follow to completion
-cont Rocephin as per ID
-follow fever curve (last fever 03/27 at 0323)
Anemia:
-likely due to chemo
-s/p 2U pRBCs
Hypokalemia:
-40meq PO Q4H x 2 doses
Hypomagnesemia:
-4g IV Mg x 1
Other problems:
Essential HTN: resume ACEi
h/o prostate CA
HLD: holding statin with transaminitis
h/o Vigil's esophagus
FULL/SCDs, encourage ambulation. I discussed with the patient's nurse, Clemente, as well as the patient that he needs to ambulate the entirety of the third floor 3 times a day.
Anticipated Discharge: 24 - 48 hours
Subjective/Interval History
-
Date of Service: March 28, 2025
No new complaints.
Objective Data
-
Labs:
Laboratory Results
03/28/25
05:16
WBC 9.9
Hgb 9.3 L D
Hct 27.8 L
Plt Count 77 L
Sodium 138
Potassium 3.1 L
Chloride 107
Carbon Dioxide 25
BUN 9
Creatinine 0.8
Glucose 85
Calcium 8.2 L
Total Bilirubin 0.7
AST 53
ALT 100 H
Alkaline Phosphatase 324 H
Vital Signs:
Vital Signs
Temp Pulse Resp BP Pulse Ox
98.5 F 75 19 147/87 97
03/28/25 07:00 03/28/25 07:00 03/28/25 07:00 03/28/25 07:00 03/28/25 07:00
I&O
03/27/25 03/28/25 03/29/25
06:59 06:59 06:59
Intake Total 1375 / 1375 1220 / 1220
Balance 1375 / 1375 1220 / 1220
[2025-03-28] MEDS: ZESTRIL 10 MG PO (09:58)
--- NOTE | 2025-03-28 10:31 | CM ---
Pt received 2 u PRBCs yesterday . Hgb increased.
Maintained on IV antibiotics.
IMM given signed yesterday.
Pt declined VN at [facility].
mercedez drive him home .
PLAN Home no needs
[2025-03-28] MEDS: KCL 40 MEQ PO ×2 (10:34→14:49)
[2025-03-28] MEDS: MAGNESIUM SULFATE 100 IV (10:35)
[2025-03-28] MEDS: ROCEPHIN 1000 MG IV (12:29)
--- NOTE | 2025-03-28 12:43 | W.PN.ONC2 ---
Today's Communication / Plan
-
Patient stable. Counts stable.
Impression
Impression
klebsiella bacteremia, with recent diarrheal episodes
pancreas cancer, s/p Whipple, on adjuvant FOLFIRINOX
progressive anemia and thrombocytopenia, from chemotherapy
Plan
Plan
antibiotics per ID, not neutropenic
Will follow and reschedule chemo for next 1-2 weeks
Subjective/Objective
Chief Complaint
ACS Heme Onc
Subjective
Some cold sweats at night. Fevers improved.
Vital Signs:
Vital Signs
Temp Pulse Resp BP Pulse Ox
98.4 F 79 19 155/86 98
03/28/25 11:00 03/28/25 11:00 03/28/25 11:00 03/28/25 11:00 03/28/25 11:00
Lab Results:
Laboratory Data
WBC 9.9 10^3/uL (4.8-10.8) 03/28/25 05:16
Hgb 9.3 g/dL (13.0-18.0) L D 03/28/25 05:16
Plt Count 77 10^3/uL (130-400) L 03/28/25 05:16
PT 16.0 Sec (11.4-14.6) H 03/26/25 12:48
INR 1.25 03/26/25 12:48
eGFR > 60.00 03/28/25 05:16
Physical Exam
HEENT: No Jaundice
Cardiology: S1 and S2
Pulmonary: Clear
GI: Soft
Extremities: No C/C/E
--- NOTE | 2025-03-28 13:25 | W.PN.ID1 ---
Date of Service
Date of Service: March 28, 2025
Today's Communication
- repeat blood cultures x2 in progress
- continue ceftriaxone today, possible transition to orals tomorrow pending blood cultures
Assessment / Plan
Klebsiella Bacteremia
Fever
- CT a/p without a definitive source
- CXR two view - no acute disease
- source may have been enteritis
- repeat blood cultures x2 in progress
- continue ceftriaxone today, possible transition to orals tomorrow pending blood cultures
Chief Complaint
-: Bacteremia
Subjective / Review of Systems
afebrile bp stable
Vital Signs / Physical Exam
Vital Signs
Vital Signs
Temp Pulse Resp BP Pulse Ox
98.4 F 79 19 155/86 98
03/28/25 11:00 03/28/25 11:00 03/28/25 11:00 03/28/25 11:00 03/28/25 11:00
Physical Exam
Constitutional: No Acute Distress
Cardiovascular: Regular Rate and S1/S2; Negative Murmur or Rub
Pulmonary: Clear and Symmetric; Negative Wheezes or Rales
Gastrointestinal: Soft, Non Tender, Non Distended and Normal Bowel Sounds
Skin: Warm and Dry; Negative Rash or Jaundice
Objective Data
Lab Data
Lab Results
03/28/25 05:16
03/28/25 05:16
PT 16.0 Sec (11.4-14.6) H 03/26/25 12:48
INR 1.25 03/26/25 12:48
Estimated Creat Clear 84 ml/min 03/28/25 05:16
Lactic Acid 1.0 mmol/L (0.7-2.0) 03/27/25 06:41
Total Bilirubin 0.7 mg/dl (0.2-1.3) 03/28/25 05:16
AST 53 U/L (17-59) 03/28/25 05:16
ALT 100 U/L (0-50) H 03/28/25 05:16
Alkaline Phosphatase 324 U/L (38-126) H 03/28/25 05:16
Most recent labs reviewed.
Micro Results:
03/26/25 12:48 Blood Culture - Preliminary
Blood/Venous No Growth in 48 hours- Final report to follow
03/27/25 11:46 Blood Culture - Preliminary
Blood/Venous No Growth in 24 hours- Final report to follow
03/27/25 11:12 Blood Culture - Preliminary
Blood/Venous No Growth in 24 hours- Final report to follow
03/26/25 12:48 Blood Culture - Preliminary
Blood/Venous Klebsiella aerogenes
Gram Stain - Preliminary
03/26/25 15:23 Blood Parasites Smear - Final
Blood/Venous
03/26/25 12:48 Influenza Types A & B (ANITHA) - Final
Nasal Swab Negative for Influenza A & B, NAAT
Negative results must be combined with clinical observations
and patient history.
Nucleic Acid Amplification test (NAAT)performed on the
[employer] platform.
[2025-03-29 02:58] VITALS: BP 153/85
[2025-03-29 06:22] LABS: Hematocrit 29.9 % (39.0-52.0); Hemoglobin 10.2 g/dL (13.0-18.0); Mean Corp Hgb Conc. 34.1 g/dL (33.0-37.0); Mean Corpuscular Volume 90.6 fL (80.0-94.0); Platelet Count 53 10^3/uL (130-400); Red Cell Dist. Width 16.7 % (11.5-14.5)
[2025-03-29 07:01] LABS: ALT (SGPT) 105 U/L (0-50); AST (SGOT) 86 U/L (17-59); Albumin 3.1 g/dl (3.5-5.0); Alkaline Phosphatase 407 U/L (38-126); Blood Urea Nitrogen 9 mg/dl (9-20); Calcium 8.5 mg/dl (8.4-10.2); Carbon Dioxide 27 mmol/L (22-30); Chloride 103 mmol/L (98-107); Estimated Creatinine Clearance 96 ml/min; Glucose 102 mg/dl (70-99); Magnesium 2.1 mg/dl (1.6-2.3); Potassium 3.3 mmol/L (3.5-5.1); Sodium 135 mmol/L (135-145); Total Protein 5.5 g/dl (6.3-8.2); eGFR > 60.00
[2025-03-29 07:21] VITALS: BP 125/84
[2025-03-29] MEDS: NON-FORMULARY ITEM 3 CAP PO ×2 (07:40→12:14)
[2025-03-29] MEDS: ZESTRIL 10 MG PO (07:42)
[2025-03-29] MEDS: PROTONIX 40 MG PO (07:44)
--- NOTE | 2025-03-29 08:30 | W.PN.HOSP.TC ---
Today's Communication/Plan
-
d/c
Assessment / Plan
Assessment / Plan
Gen: NAD, AAOx3.
Eyes: EOMI, PERRLA, no scleral icterus.
Neck: supple.
CV: RRR, +S1/S2, no m/r/g.
Resp: CTAB, no rales, wheezes, or rhonchi.
Abd: +BS, soft, NT, ND
Skin: No rashes.
Neuro: CN 2-12 intact, non-focal.
Psych: Normal mood and affect.
03/26/25 12:48 Blood/Venous Blood Culture - Preliminary
No Growth in 48 hours- Final report to follow
03/27/25 11:46 Blood/Venous Blood Culture - Preliminary
No Growth in 24 hours- Final report to follow
03/27/25 11:12 Blood/Venous Blood Culture - Preliminary
No Growth in 24 hours- Final report to follow
03/26/25 12:48 Blood/Venous Blood Culture - Preliminary
Klebsiella aerogenes
03/26/25 12:48 Blood/Venous Gram Stain - Preliminary
03/26/25 15:23 Blood/Venous Blood Parasites Smear - Final
03/26/25 12:48 Nasal Swab Influenza Types A & B (ANITHA) - Final
Negative for Influenza A & B, NAAT
Negative results must be combined with clinical observations
and patient history.
Nucleic Acid Amplification test (NAAT)performed on the
[employer] platform.
CT A/P: Postoperative changes of Whipple procedure without evidence of complication. The remnant pancreas is atrophic which is similar in appearance to prior. There is mild hepatic biliary duct dilation which likely sequelae of prior operation.
Infrarenal abdominal aortic ectasia measuring 2.8 cm. 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 There are scattered hepatic hypodensities which are too small to accurately characterize although similar in appearance
to prior.
CXR: No acute radiographic abnormality in the chest
Bacteremia:
-presented with fever/chills/diaphoresis x 2 days
-h/o pancreatic CA s/p Whipple November 2024 currently on chemo (c/s ONC), last tx 03/14/25 (on FOLFIRINOX), WBC growth factor given 03/16
-afebrile in the ER but febrile O/N, not neutropenic
-Flu/COVID NEG
-CT A/P and U/A without source/evidence of infection
-given 1L NS, Rocephin in the ER
-lactic acidosis has resolved with IVFs
-1 of 2 BCxs with Klebsiella
-follow fever curve (last fever 03/27 at 0323)
-case discussed with Dr. Mullen. Pt can be discharged to on Cefdinir to complete 7 days.
Anemia:
-likely due to chemo
-s/p 2U pRBCs
Hypokalemia:
-40meq PO Q4H x 2 doses
Other problems:
Hypomagnesemia, resolved
Essential HTN: resume ACEi
h/o prostate CA
HLD: holding statin with transaminitis
h/o Vigil's esophagus
FULL/SCDs, encourage ambulation.
Total time spent on d/c = 33 min. This included today's physical exam, progress note, review of laboratory and diagnostic data, preparation of discharge documents and prescriptions, and discussions about the pt's hospital course and discharge plan
with the patient and other medical technologist generalist involved in the patient's care.
Anticipated Discharge: Today
Subjective/Interval History
-
Date of Service: March 29, 2025
Pt states one watery stool today. No other new complaints.
Objective Data
-
Labs:
Laboratory Results
03/29/25
05:30
WBC 11.1 H
Hgb 10.2 L
Hct 29.9 L
Plt Count 53 L D
Sodium 135
Potassium 3.3 L
Chloride 103
Carbon Dioxide 27
BUN 9
Creatinine 0.7
Glucose 102 H
Calcium 8.5
Total Bilirubin 1.2
AST 86 H
ALT 105 H
Alkaline Phosphatase 407 H
Vital Signs:
Vital Signs
Temp Pulse Resp BP Pulse Ox
97.8 F 78 16 125/84 98
03/29/25 07:21 03/29/25 07:21 03/29/25 07:21 03/29/25 07:21 03/29/25 07:21
I&O
03/28/25 03/29/25 03/30/25
06:59 06:59 06:59
Intake Total 1220 / 1220 2580 / 2580
Balance 1220 / 1220 2580 / 2580
[2025-03-29] MEDS: KCL 40 MEQ PO ×2 (09:31→12:16)
--- NOTE | 2025-03-29 09:34 | W.PN.ID1 ---
Date of Service
Date of Service: March 29, 2025
Today's Communication
- transition to cefdinir to complete 7 day course 03/26-04/01
Assessment / Plan
Klebsiella Bacteremia
Fever
- source may have been enteritis
- repeat blood cultures x2 in progress no growth to date
- transition to cefdinir to complete 7 day course 03/26-04/01
Chief Complaint
-: Bacteremia
Subjective / Review of Systems
afebrile
bp stable
Vital Signs / Physical Exam
Vital Signs
Vital Signs
Temp Pulse Resp BP Pulse Ox
97.8 F 78 16 125/84 98
03/29/25 07:21 03/29/25 07:21 03/29/25 07:21 03/29/25 07:21 03/29/25 07:21
Physical Exam
Constitutional: No Acute Distress
Cardiovascular: Regular Rate and S1/S2; Negative Murmur or Rub
Pulmonary: Clear and Symmetric; Negative Wheezes or Rales
Gastrointestinal: Soft, Non Tender, Non Distended and Normal Bowel Sounds
Skin: Warm and Dry; Negative Rash or Jaundice
Objective Data
Lab Data
Lab Results
03/29/25 05:30
03/29/25 05:30
PT 16.0 Sec (11.4-14.6) H 03/26/25 12:48
INR 1.25 03/26/25 12:48
Estimated Creat Clear 96 ml/min 03/29/25 05:30
Lactic Acid 1.0 mmol/L (0.7-2.0) 03/27/25 06:41
Total Bilirubin 1.2 mg/dl (0.2-1.3) 03/29/25 05:30
AST 86 U/L (17-59) H 03/29/25 05:30
ALT 105 U/L (0-50) H 03/29/25 05:30
Alkaline Phosphatase 407 U/L (38-126) H 03/29/25 05:30
Most recent labs reviewed.
Micro Results:
03/26/25 12:48 Blood Culture - Preliminary
Blood/Venous Klebsiella aerogenes
Gram Stain - Preliminary
03/26/25 12:48 Blood Culture - Preliminary
Blood/Venous No Growth in 48 hours- Final report to follow
03/27/25 11:46 Blood Culture - Preliminary
Blood/Venous No Growth in 24 hours- Final report to follow
03/27/25 11:12 Blood Culture - Preliminary
Blood/Venous No Growth in 24 hours- Final report to follow
03/26/25 15:23 Blood Parasites Smear - Final
Blood/Venous
03/26/25 12:48 Influenza Types A & B (ANITHA) - Final
Nasal Swab Negative for Influenza A & B, NAAT
Negative results must be combined with clinical observations
and patient history.
Nucleic Acid Amplification test (NAAT)performed on the
[employer] platform.
--- NOTE | 2025-03-29 09:38 | W.PN.ONC2 ---
Today's Communication / Plan
-
daily cbc
creon
Impression
Impression
klebsiella bacteremia, with recent diarrheal episodes
pancreas cancer, s/p Whipple, on adjuvant FOLFIRINOX
progressive anemia and thrombocytopenia, from chemotherapy
Plan
Plan
antibiotics per ID, not neutropenic
cytopenias secondary to chemo
Will follow and reschedule chemo for next 1-2 weeks
Subjective/Objective
Subjective
afebrile
improved diarrhea with creon
Vital Signs:
Vital Signs
Temp Pulse Resp BP Pulse Ox
97.8 F 78 16 125/84 98
03/29/25 07:21 03/29/25 07:21 03/29/25 07:21 03/29/25 07:21 03/29/25 07:21
Lab Results:
Laboratory Data
WBC 11.1 10^3/uL (4.8-10.8) H 03/29/25 05:30
Hgb 10.2 g/dL (13.0-18.0) L 03/29/25 05:30
Plt Count 53 10^3/uL (130-400) L D 03/29/25 05:30
PT 16.0 Sec (11.4-14.6) H 03/26/25 12:48
INR 1.25 03/26/25 12:48
eGFR > 60.00 03/29/25 05:30
Physical Exam
HEENT: Moist Mucous Membranes; No Jaundice
Pulmonary: Other (unlabored)
GI: Soft
Extremities: Pulses Present
Neuro: Non Focal
[2025-03-29] MEDS: OMNICEF 300 MG PO (10:17)
--- NOTE | 2025-03-29 10:33 | CM ---
Addendum entered by Chelsi Hollis 03/29/25 12:52:
Signed IMM on chart 03/27/25
Original Note:
Plan: Discharge to home today; no needs; will transport home
[2025-03-29 11:30] VITALS: BP 133/87
[2025-03-29 14:01] LABS: Lyme Antibody Screen, EIA Negative (Negative)
--- NOTE | 2025-03-29 14:02 | PTCARENOTE ---
Spoke with [facility] pharmacy for discharge Cefdinir. Correct script should read for 7 doses and confirmed. Script is being filled.
== END 2025-03-29 14:00 | disposition home or self-care (01) | DRG 436 ==
LOC: 3 WEST ACU 09:34
PROVIDERS: Nurse Practitioner Gerontology; Physician Assistant; ADMITTING PHYSICIAN Internal Medicine; CONSULT PHYSICIAN Internal Medicine Hematology & Oncology; EMERGENCY PHYSICIAN Emergency Medicine; FAMILY PHYSICIAN Internal Medicine; OTHER PHYSICIAN Student in an Organized Health Care Education/Training Program
PROC: 30233N1 Transfusion of Nonautologous Red Blood Cells into Peripheral Vein, Percutaneous Approach (ICD-10-PCS; 2025-03-27)
DX: C25.9 Malignant neoplasm of pancreas, unspecified (principal); E87.20 Acidosis, unspecified; R78.81 Bacteremia; E87.6 Hypokalemia; Z85.46 Personal history of malignant neoplasm of prostate; I10 Essential (primary) hypertension; K22.70 Barrett's esophagus without dysplasia; I72.3 Aneurysm of iliac artery; I77.811 Abdominal aortic ectasia; Z90.411 Acquired partial absence of pancreas; B96.1 Klebsiella pneumoniae [K. pneumoniae] as the cause of diseases classified elsewhere; E78.00 Pure hypercholesterolemia, unspecified; K21.9 Gastro-esophageal reflux disease without esophagitis; T45.1X5A Adverse effect of antineoplastic and immunosuppressive drugs, initial encounter; D69.59 Other secondary thrombocytopenia; Z11.52 Encounter for screening for COVID-19
CPT/HCPCS: 36415; 71046; 74177; 80053; 81003; 81015; 82248; 83605; 83690; 83735; 85025; 85027; 85610; 86618; 86850; 86900; 86901; 86920; 87015; 87040; 87077; 87154; 87186; 87205; 87207; 87468; 87484; 87502; 87798; 87811; 93005; 96365; 96366; 96375; 99285; 99406; P9016; Q9967

== ENCOUNTER → 2025-04-02 09:13 | Outpatient (REF) | payer MEDICARE, OTHER, SELFPAY ==
[2025-04-02 10:22] LABS: Hematocrit 33.0 % (39.0-52.0); Hemoglobin 10.1 g/dL (13.0-18.0); Mean Corp Hgb Conc. 30.6 g/dL (33.0-37.0); Mean Corpuscular Volume 97.3 fL (80.0-94.0); Nucleated Red Blood Cells % 0 % (-); Platelet Count 251 10^3/uL (130-400); Red Cell Dist. Width 17.1 % (11.5-14.5)
[2025-04-02 10:59] LABS: ALT (SGPT) 67 U/L (0-50); AST (SGOT) 48 U/L (17-59); Albumin 3.6 g/dl (3.5-5.0); Alkaline Phosphatase 373 U/L (38-126); Blood Urea Nitrogen 14 mg/dl (9-20); Calcium 9.0 mg/dl (8.4-10.2); Carbon Dioxide 26 mmol/L (22-30); Chloride 109 mmol/L (98-107); Glucose 92 mg/dl (70-99); Magnesium 1.9 mg/dl (1.6-2.3); Potassium 4.7 mmol/L (3.5-5.1); Sodium 141 mmol/L (135-145); Total Protein 6.0 g/dl (6.3-8.2); eGFR > 60.00
[2025-04-02 11:49] LABS: Glycohemoglobin (HgbA1c) 5.6 % (4.0-5.6)
== END ==
LOC: REG 09:13
PROVIDERS: ATTENDING PHYSICIAN Internal Medicine; OTHER PHYSICIAN Internal Medicine Hematology & Oncology
DX: R50.9 Fever, unspecified (principal); R73.01 Impaired fasting glucose; I10 Essential (primary) hypertension; Z09 Encounter for follow-up examination after completed treatment for conditions other than malignant neoplasm
CPT/HCPCS: 36415; 80053; 83036; 83735; 85025

== ENCOUNTER → 2025-04-10 06:53 | Outpatient (REF) | payer MEDICARE, OTHER, SELFPAY ==
[2025-04-10 08:02] LABS: Hematocrit 34.1 % (39.0-52.0); Hemoglobin 10.7 g/dL (13.0-18.0); Mean Corp Hgb Conc. 31.4 g/dL (33.0-37.0); Mean Corpuscular Volume 100.0 fL (80.0-94.0); Nucleated Red Blood Cells % 0 % (-); Platelet Count 325 10^3/uL (130-400); Red Cell Dist. Width 17.1 % (11.5-14.5)
[2025-04-10 08:29] LABS: ALT (SGPT) 121 U/L (0-50); AST (SGOT) 55 U/L (17-59); Albumin 3.8 g/dl (3.5-5.0); Alkaline Phosphatase 352 U/L (38-126); Blood Urea Nitrogen 17 mg/dl (9-20); Calcium 9.3 mg/dl (8.4-10.2); Carbon Dioxide 27 mmol/L (22-30); Chloride 106 mmol/L (98-107); Glucose 110 mg/dl (70-99); Potassium 4.2 mmol/L (3.5-5.1); Sodium 140 mmol/L (135-145); Total Protein 6.3 g/dl (6.3-8.2); eGFR > 60.00
== END ==
LOC: REG 06:53
PROVIDERS: ATTENDING PHYSICIAN Internal Medicine Hematology & Oncology; FAMILY PHYSICIAN Internal Medicine
DX: C25.0 Malignant neoplasm of head of pancreas (principal)
CPT/HCPCS: 36415; 80053; 85025

== ENCOUNTER → 2025-04-24 06:44 | Outpatient (REF) | payer MEDICARE, OTHER, SELFPAY ==
[2025-04-24 07:37] LABS: Hematocrit 32.5 % (39.0-52.0); Hemoglobin 10.9 g/dL (13.0-18.0); Mean Corp Hgb Conc. 33.5 g/dL (33.0-37.0); Mean Corpuscular Volume 94.2 fL (80.0-94.0); Nucleated Red Blood Cells % 0 % (-); Platelet Count 127 10^3/uL (130-400); Red Cell Dist. Width 16.6 % (11.5-14.5)
[2025-04-24 08:00] LABS: ALT (SGPT) 35 U/L (0-50); AST (SGOT) 35 U/L (17-59); Albumin 4.1 g/dl (3.5-5.0); Alkaline Phosphatase 272 U/L (38-126); Blood Urea Nitrogen 15 mg/dl (9-20); Calcium 9.1 mg/dl (8.4-10.2); Carbon Dioxide 25 mmol/L (22-30); Chloride 107 mmol/L (98-107); Glucose 101 mg/dl (70-99); Potassium 3.5 mmol/L (3.5-5.1); Sodium 139 mmol/L (135-145); Total Protein 6.2 g/dl (6.3-8.2); eGFR > 60.00
== END ==
LOC: REG 06:44
PROVIDERS: ATTENDING PHYSICIAN Internal Medicine Hematology & Oncology; FAMILY PHYSICIAN Internal Medicine
DX: C25.0 Malignant neoplasm of head of pancreas (principal)
CPT/HCPCS: 36415; 80053; 85025

== ENCOUNTER → 2025-05-07 06:55 | Outpatient (REF) | payer MEDICARE, OTHER, SELFPAY ==
[2025-05-07 08:05] LABS: ALT (SGPT) 98 U/L (0-50); AST (SGOT) 40 U/L (17-59); Albumin 3.9 g/dl (3.5-5.0); Alkaline Phosphatase 303 U/L (38-126); Blood Urea Nitrogen 14 mg/dl (9-20); Calcium 9.2 mg/dl (8.4-10.2); Carbon Dioxide 29 mmol/L (22-30); Chloride 104 mmol/L (98-107); Glucose 102 mg/dl (70-99); Potassium 3.5 mmol/L (3.5-5.1); Sodium 138 mmol/L (135-145); Total Protein 6.3 g/dl (6.3-8.2); eGFR > 60.00
[2025-05-07 08:22] LABS: Hematocrit 31.9 % (39.0-52.0); Hemoglobin 10.5 g/dL (13.0-18.0); Mean Corp Hgb Conc. 32.9 g/dL (33.0-37.0); Mean Corpuscular Volume 94.9 fL (80.0-94.0); Platelet Count 117 10^3/uL (130-400); Red Cell Dist. Width 15.9 % (11.5-14.5)
[2025-05-07 10:52] LABS: Nucleated Red Blood Cells % 0 % (-)
== END ==
LOC: REG 06:55
PROVIDERS: ATTENDING PHYSICIAN Internal Medicine Hematology & Oncology; FAMILY PHYSICIAN Internal Medicine
DX: C25.0 Malignant neoplasm of head of pancreas (principal)
CPT/HCPCS: 36415; 80053; 85025

== ENCOUNTER → 2025-05-22 06:36 | Outpatient (REF) | payer MEDICARE, OTHER, SELFPAY ==
[2025-05-22 07:43] LABS: Hematocrit 32.2 % (39.0-52.0); Hemoglobin 10.7 g/dL (13.0-18.0); Mean Corp Hgb Conc. 33.2 g/dL (33.0-37.0); Mean Corpuscular Volume 97.3 fL (80.0-94.0); Platelet Count 112 10^3/uL (130-400); Red Cell Dist. Width 15.8 % (11.5-14.5)
[2025-05-22 07:57] LABS: ALT (SGPT) 142 U/L (0-50); AST (SGOT) 120 U/L (17-59); Albumin 4.0 g/dl (3.5-5.0); Alkaline Phosphatase 437 U/L (38-126); Blood Urea Nitrogen 14 mg/dl (9-20); Calcium 8.8 mg/dl (8.4-10.2); Carbon Dioxide 31 mmol/L (22-30); Chloride 101 mmol/L (98-107); Glucose 89 mg/dl (70-99); Potassium 3.0 mmol/L (3.5-5.1); Sodium 140 mmol/L (135-145); Total Protein 6.2 g/dl (6.3-8.2); eGFR > 60.00
[2025-05-22 10:05] LABS: Nucleated Red Blood Cells % 0 % (-)
== END ==
LOC: REG 06:36
PROVIDERS: ATTENDING PHYSICIAN Internal Medicine Hematology & Oncology; FAMILY PHYSICIAN Internal Medicine
DX: C25.0 Malignant neoplasm of head of pancreas (principal)
CPT/HCPCS: 36415; 80053; 85025

== ENCOUNTER → 2025-05-31 06:28 | Outpatient (REF) | payer MEDICARE, OTHER, SELFPAY ==
[2025-05-31 08:04] LABS: ALT (SGPT) 54 U/L (0-50); AST (SGOT) 40 U/L (17-59); Albumin 3.9 g/dl (3.5-5.0); Alkaline Phosphatase 324 U/L (38-126); Blood Urea Nitrogen 18 mg/dl (9-20); Calcium 9.2 mg/dl (8.4-10.2); Carbon Dioxide 27 mmol/L (22-30); Chloride 105 mmol/L (98-107); Glucose 96 mg/dl (70-99); Potassium 4.2 mmol/L (3.5-5.1); Sodium 137 mmol/L (135-145); Total Protein 6.1 g/dl (6.3-8.2); eGFR > 60.00
== END ==
LOC: REG 06:28
PROVIDERS: ATTENDING PHYSICIAN Internal Medicine Hematology & Oncology; FAMILY PHYSICIAN Internal Medicine
DX: C25.0 Malignant neoplasm of head of pancreas (principal)
CPT/HCPCS: 36415; 80053

== ENCOUNTER → 2025-06-11 06:24 | Outpatient (REF) | payer MEDICARE, OTHER, SELFPAY ==
[2025-06-11 07:29] LABS: Hematocrit 31.4 % (39.0-52.0); Hemoglobin 10.4 g/dL (13.0-18.0); Mean Corp Hgb Conc. 33.1 g/dL (33.0-37.0); Mean Corpuscular Volume 95.7 fL (80.0-94.0); Platelet Count 90 10^3/uL (130-400); Red Cell Dist. Width 15.9 % (11.5-14.5)
[2025-06-11 07:47] LABS: ALT (SGPT) 47 U/L (0-50); AST (SGOT) 58 U/L (17-59); Albumin 3.8 g/dl (3.5-5.0); Alkaline Phosphatase 275 U/L (38-126); Blood Urea Nitrogen 17 mg/dl (9-20); Calcium 8.4 mg/dl (8.4-10.2); Carbon Dioxide 28 mmol/L (22-30); Chloride 105 mmol/L (98-107); Glucose 92 mg/dl (70-99); Potassium 3.0 mmol/L (3.5-5.1); Sodium 140 mmol/L (135-145); Total Protein 6.1 g/dl (6.3-8.2); eGFR > 60.00
[2025-06-11 08:30] LABS: Absolute Neutrophils -Man Diff 2.7 10^3/uL (1.4-6.5)
[2025-06-11 08:31] LABS: Normal RBC Morphology Yes; Platelets Checked Yes; Total Cells Counted 100
== END ==
LOC: REG 06:24
PROVIDERS: ATTENDING PHYSICIAN Internal Medicine Hematology & Oncology; FAMILY PHYSICIAN Internal Medicine
DX: C25.0 Malignant neoplasm of head of pancreas (principal)
CPT/HCPCS: 36415; 80053; 85025